=== PATIENT | female | born 1945 | race Caucasian/White ===

== ENCOUNTER → 2022-04-26 11:48 | Outpatient (BNVA) | payer MEDICARE, BC, SELFPAY | PROVIDERS: PCP Internal Medicine; Visit Provider Internal Medicine Gastroenterology | DX: D64.9 Anemia, unspecified (principal) | CPT/HCPCS: 99202 ==

== ENCOUNTER → 2022-09-16 10:34 | Outpatient (BNVA) | payer MEDICARE, BC, SELFPAY | PROVIDERS: PCP Internal Medicine; Visit Provider Internal Medicine Gastroenterology | DX: K92.2 Gastrointestinal hemorrhage, unspecified (principal) | CPT/HCPCS: 99212 ==

== ENCOUNTER 2023-10-10 11:12 | Outpatient (AMB) | payer MEDICARE, BC, SELFPAY ==
--- NOTE | 2023-10-10 11:15 | A.OFFVIS_ITS ---
Intake Vital Signs 10/10/23 11:16 Height 5 ft 3 in Weight 162 lb BMI 28.7 BP 174/73 H Blood Pressure Location Lt brachial Position Sitting Pulse 81 Intake Visit Reasons: 4 month follow up Intake Note: Alina presents in the office as a 4 month follow up. CC: She states that she is having concerns. She states that she is still bleeding and they found one bleed and she was recommended to be put on medications. She was good since last spring and it has started again. She was also recommended to try thalidomide -- you recommended octreotide and she does not like the side effects of the Thalidomide so she would like to talk to you about this medication. Allergies Seasonal Allergies Allergy (Mild, Verified 10/10/23 11:17) Unknown HPI 4 month follow up HPI Details RECAP: She has been having chronic anemia for years she has had x2 colonoscopy in last few years, x 2 EGD and x [address] scanning and no obvious cause found per her she has have freq iron infusions and blood transfusions last PRBC about 1 month ago with IV iron she has seen blood few times in toilet when she was prepping for colonsocopy also seen black stools as well every few days she normally goes few times a day for stool she sees black stools few times a week She takes nabumetone BID for 6 months, for leg no aspirin, no blood thinners she takes lansoprazole BID I did review one VCE study from [facility] with her and it was negative. INTERIM: she had f/u with Dr Griffiths, and had bleeder treated with EGD but now she has recurrent bleeding episodes and he had recommended thalidomide she is worried abt using this and would prefer octreotide instead she is getting iron infusions and blood prn she has v mild epigastric discomfort she is asking about octreotide vs thalidomide also asking abt doing a VCE prn EXAM: GENERAL: The patient is well developed and nontoxic. VITAL SIGNS:see workflow HEENT: Nonicteric sclerae, PERRLA, EOMI. Oropharynx clear. Moist mucous membranes. Conjunctivae appear well perfused. No thyroid mass. CHEST: Chest wall is nontender. HEART: Regular rate and rhythm without murmurs. LUNGS: Clear to auscultation bilaterally. ABDOMEN: Soft, positive bowel sounds, nontender, no organomegaly.no flank tenderness SKIN: No rash, no excessive bruising, petechiae, or purpura. NEUROLOGIC: Cranial nerves II-XII intact without motor/sensory deficit. A/P: 1/ Overt obscure GI bleeding , had treat ment but again bleeding, she wants to discuss meds vs further endoscopic treatment Plan: 1/ she will d/w PCP abt the meds also ca n do VCe prn if she has signs of GIB --will see prn PFS Medical History FHx: total abdominal hysterectomy and bilateral salpingo-oophorectomy Surgical History H/O: hysterectomy History of esophagogastroduodenoscopy (EGD) History of left knee replacement Hx of colonoscopy Hx of rectal polypectomy Hx of tonsillectomy Family History Mother Kidney failure Heart failure Father Diabetes Heart problem Sister Heart failure Paternal Aunt Colon cancer Hx of lymphoma Paternal Aunt Liver cancer Breast cancer Maternal Grandfather Colon cancer Daughter Lyme disease Physical Exam Vital Signs: Last Vital Signs Pulse 81 10/10/23 11:16 BP 174/73 H 10/10/23 11:16 BMI result Body Mass Index 28.7 Assessment & Plan Assessment & Plan (1) Small intestinal hemorrhage: Code(s): K92.2 - Gastrointestinal hemorrhage, unspecified Plan: see above Medications: New peg-electrolyte soln 420 gram until fecal effluent is clear; do not exceed a total volume of 2,000 mL 240 mL PO Q10M 4,000 mL 0RF Coding Level of Care Code Est Pt Level 3 (86725) Diagnoses Small intestinal hemorrhage K92.2
[2023-10-10 11:16] VITALS: BP 174/73; PULSE 81; BMI 28.7
== END 2023-10-10 13:10 | disposition home or self-care (01) ==
PROVIDERS: PCP Internal Medicine; Visit Provider Internal Medicine Gastroenterology
DX: K92.2 Gastrointestinal hemorrhage, unspecified (principal)
CPT/HCPCS: 99213

== ENCOUNTER → 2023-10-10 11:12 | Outpatient (BNVA) | payer MEDICARE, BC, SELFPAY | PROVIDERS: PCP Internal Medicine; Visit Provider Internal Medicine Gastroenterology | DX: K92.2 Gastrointestinal hemorrhage, unspecified (principal) | CPT/HCPCS: 99212 ==

== ENCOUNTER 2025-05-30 07:19 | Outpatient (REF) | payer MEDICARE, BC, SELFPAY ==
--- NOTE | ~2025-05-30 | XR_ITS ---
CLINICAL HISTORY: M25.562 - Pain in left knee 3 view left knee Comparison: None provided Findings: Knee arthroplasty. No fractures or dislocations. No significant loss of joint space, osteophytes, or erosions. No joint effusion. No radiopaque foreign body. IMPRESSION: 1. No acute findings. This document has been electronically signed by: Michelle Feldman MD on 05/31/2025 14:47:15
--- OUTSIDE RECORDS SUMMARY | 2025-05-30 07:22 | XMS_ITS | Clinical Summary ---
Author Organization [facility] Address [address] [place] [phone] Phone Care Team Providers Care Gleason Operator Name Role Phone Young Jimenez MD Primary Care Provider Allergies Active Allergy Reactions Criticality Noted Date Comments Amoxicillin Diarrhea 04/04/2021 Buspirone 04/04/2021 Cephalosporins 02/15/2019 Fluorouracil-Adhesive Bandage 2021 Hydrocodone-Acetaminophen Anxiety Low 04/04/2021 Lisinopril 04/04/2021 Nabumetone 04/04/2021 Omeprazole Swelling 04/04/2021 Oxycodone-Acetaminophen Rash Low 02/15/2019 Propoxyphene High 09/08/2019 Rofecoxib 04/04/2021 Valsartan 04/04/2021 Medications amitriptyline (ELAVIL) 10 MG tablet Take 20 mg by mouth nightly at bedtime. Active atenolol (TENORMIN) 50 mg tablet Take 50 mg by mouth daily. Active biotin 5 mg Cap 2 (two) times a week. Active hydroCHLOROthia zide (MICROZIDE) 12.5 mg capsule Take 12.5 mg by mouth daily. Active traMADol (ULTRAM) 50 mg tablet Take 50 mg by mouth every 6 (six) hours as needed for pain (specific location in comments). Active cholecalciferol (VITAMIN D3) 5,000 unit capsule Take by mouth. Activ e cycloSPORINE (RESTASIS) 0.05 % suspension Place 1 drop into each eye 2 (two) times a day. Active calcium carbonate 500 mg (200 mg elemental) chewable tablet Take 1 tablet by mouth daily. As needed Active azelastine (ASTELIN) 137 mcg (0.1 %) nasal spray 2 sprays by Nasal route 2 (two) times a day. Use in each nostril as directed Active thyroid, pork, (ARMOUR THYROID) 30 mg Tab Take 45 mg by mouth every morning. Active gabapentin (NEURONTIN) 100 MG capsule Take 100 mg by mouth 4 (four) times a day. Active estradioL (VAGIFEM) 10 mcg TabIndications: Vaginal atrophy Place 1 tablet (10 mcg total) vaginally 2 (two) times a week. 24 tablet 3 1 Active Additional Information Patient not taking.Reported on 05/16/2025 lansoprazole (PREVACID) 30 MG capsule Take 60 mg by mouth. Active glyBURIDE (DIABETA) 1.25 MG tablet Take 1.25 mg by mouth daily with breakfast. Half tab up to 2 tabs daily Active fluticasone propionate (FLONASE) 50 mcg/actuation nasal spray SHAKE LIQUID AND USE 1 SPRAY IN EACH NOSTRIL TWICE DAILY NEEDED 1 Active ARMOUR THYROID 15 mg Tab Take 45 mg by mouth every morning. 1 Active ascorbic acid, vitamin C, (VITAMIN C) 500 mg Chew Take 500 mg by mouth daily. Active JARDIANCE 25 mg tablet Take 1 tablet by mouth every morning. 3 Active nabumetone (RELAFEN) 750 MG tablet Take 1 tablet by mouth 2 (two) times a day. 3 Active ondansetron (ZOFRAN) 8 MG tablet 3 Active acetaminophen (TYLENOL) 500 MG tablet Take 500 mg by mouth every 6 (six) hours as needed for pain (specific location in comments). Active Active Problems Problem Noted Date Diagnosed Date Urinary urgency 04/23/2021 Assessment & Plan (04/23/2021 12:41 PM EDT): Patient with intermittent vague symptom of urinary pressure/urge to continue to void after having just voided. Symptoms not occurring consistently. May be couple times a week. Denies any dysuria. Patient reassured of normal urine POCT today. Follow-up as needed worsening or persistence of symptoms. Encounters Date Type Department Care Team Description 5 12:30 PM EDT - 5 12:45 PM EDT Surgery [facility] Endoscopy Admitting Dept Virtual Department [address] [place] [id number] Annamarie Coker MD ESOPHAGOGASTRODUODENOSCOPY 5 11:54 AM EDT Anesthesia Event [facility] Virtual Department [address] [place] [phone] Fauzia Aranda MD 5 10:21 AM EDT - 5 12:41 PM EDT Hospital Encounter [facility] Virtual Department [address] [place] [phone] Annamarie Coker MD Discharge Disposition: Home or Self Care 5 Transcribe Orders [facility] [address] [place] [address], [address] [place] [address] Annamarie Coker MD Melena (Primary Dx); Fundic gland polyps of stomach, benign 5 Procedure Pass [facility] Admitting [facility] Virtual Department [address] [place] [phone] 5 9:30 AM EDT Pre-Admission Testing Pre Procedure Evaluation [address] [place] [phone] Annamarie Coker MD from Last 3 Months Immunizations Immunization Administration Dates Next Due COVID-19 (Pre-09/01) Pfizer Vaccine, mRNA, PF ,12/17/2020 Zoster recombinant 05/18/2018,02/26/2018 Family History Medical History Relation Comments Diabetes Father Colon cancer Maternal Grandfather Diabetes Mother Heart failure Mother Kidney failure Mother Diabetes Sister Relation Status Comments Father Maternal Grandfather Mother Sister Social History Tobacco Use Types Packs/Day Years Used Date Smoking Tobacco: Never Smokeless Tobacco: Never Tobacco Cessation:Counseling Given: Not Answered Alcohol Use Standard Drinks/Week Comments Not Currently 0 (1 standard drink = 0.6 oz pur e alcohol) very occasional 4x yearly Education Answer Date Recorded Are you interested in more education? Not on libia e 03/07/2023 Are you concerned about learning? Not on file 03/07/2023 No 03/07/2023 No 03/07/2023 Digital Access Answer Date Recorded No 04/01/2023 No 04/01/2023 Reliable internet access at home? Not on file 04/01/2023 Device with a working camera? Not on file Intimate Partner Violence Answer Date R ecorded Are you denied basic needs s uch as food, clothing, or medical care? No 05/16/2025 In the past 12 months have y ou been in a relationship with a person who hurts, threatens, or tries to control you? No 05/16/2025 Are you denied basic needs s uch as food, clothing, or medical care? No 05/16/2025 In the past 12 months have y ou been in a relationship with a person who hurts, threatens, or tries to control you? No 05/16/2025 Comments No Sex and Gender Information Value Date Recorded Sex Assigned at Not on file Legal Sex Female 10:08 PM EDT Gender Identity Not on file Sexual Orientation Not on file Last Filed Vital Signs Vital Sign Reading Time Taken Comments Blood Pressure 136/90 05/16/2025 12:21 PM EDT Pulse 88 05/16/2025 12:21 PM EDT Temperature 36.4 C (97.5 F) 05/16/2025 12:08 PM EDT Respiratory Rate 16 05/16/2025 12:21 PM EDT Oxygen Saturation 98% 05/16/2025 12:21 PM EDT Inhaled Oxygen Concentration - - Weight 70.3 kg (155 lb) 05/12/2025 10:38 AM EDT Height 160 cm (5' 3 ) 03/31/2023 10:31 AM EDT Body Mass Index 27.46 03/31/2023 10:31 AM EDT Plan of Treatment Health Maintenance Due Date Last Done Comments Adult Td,Tdap Booster 1945 POTASSIUM LEVEL 1945 HEPATITIS C SCREENING 01/23/1964 OSTEOPOROSIS SCREENING INITIAL (ONE-TIME) 2011 RSV VACCINE (1 - 1-dose 75+ series) 2021 DEPRESSION SCREENING 03/02/2024 03/02/2023 COVID-19 VACCINE ( season) 2025 09/24/2024, 09/15/2023, 05/09/2023, Additional history exists LIPID PANEL 12/22/2029 12/22/2024 ZOSTER VACCINES Completed 05/18/2018, 02/26/2018 PNEUMOCOCCAL VACCINES (50+ years) Completed 07/06/2024 SMOKING STATUS SCREENING (Once After 26 Yrs) Completed 05/16/2025 HEPATITIS A VACCINES Aged Out No long er eligible based on patient's age to complete this topic HIB VACCINES Aged Out No longer eligi ble based on patient's age to complete this topic MENINGOCOCCAL VACCINES (ACWY) Aged Out No longer eligible based on patient's age to complete this topic MENINGOCOCCAL VACCINES (B) Aged Out N o longer eligible based on patient's age to complete this topic Medical Devices Implanted Type Area Honey Producer Device Identifier Shelf Expiration Date Model / Serial / Lot Prosthetic Joint Prosthetic Joint Right: Knee Procedures Procedure Name Priority Date/Time Associated Diagnosis Comments UT EDG TRANSORAL BIOPSY SINGLE/MULTIPLE 05/16/2025 11:53 AM EDT 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) Special Needs Arriving 2 hours early for CBC and type & screen - per office UT ESOPHAGOGASTRODUODENOSCOP Y TRANSORAL DIAGNOSTIC 05/16/2025 11:53 AM EDT 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) Special Needs Arriving 2 hours early for CBC and type & screen - per office ENDOSCOPY PROCEDURE 05/16/2025 11:45 AM EDT TYPE AND SCREEN (ABO,RH,ANTIBODY SCREEN) STAT 05/16/2025 10:58 AM EDT CBC STAT 05/16/2025 10:58 AM EDT OUTSIDE PATHOLOGY 05/16/2025 OUTSIDE LAB 05/16/2025 OUTSIDE PROCEDURE 05/16/2025 from Last 3 Months Results * ENDOSCOPY PROCEDURE (05/16/2025 11:45 AM EDT) Narrative Transcriptions Annamarie Coker MD - 05/16/2025 11:45 AM EDT [facility] Patient Name: Alina Mike Attending MD:: ANNAMARIE COKER MD, Procedure Date: 05/16/2025 11:45 AM Date of : 1945 Age: 80 Admit Type: Outpatient Gender: Female Room: [place] [address] Referring MD: Young Jimenez MD Exam Type: Upper GI endoscopy Indications: Iron deficiency anemia, Unexplained iron deficiency anemia, Abnormal video capsule endoscopy Medications: Monitored Anesthesia Care Procedure: Informed consent was obtained from the patientafter discussion of the indications, limitations, alternatives, benefits, and risks of the procedure. Risks specifically discussed include but are not limited to medication reactions, missed lesions, bleeding, perforation, or the need for emergent surgery. Throughout the procedure, the patient's blood pressure, pulse, end-tidal CO2, and oxygensaturations were monitored continuously. The Olympus gastroscope [id number]-[id number] #3 was introduced through the mouth, and advanced to the third partof duodenum. The upper GI endoscopy was accomplished without difficulty. The patient tolerated the procedure well. Complications: No immediate complications. Estimated blood loss:None. Findings: A 2 cm hiatal hernia was present. No gross lesions were noted in the entireesophagus. The Z-line was regular and was found 35 cm from the incisors. Multiple (close to 50) 5 to 10 mm semi-sessilepolyps with no bleeding and no stigmata of recent bleeding were found in the gastric fundus and in the gastric body. Close exam of these polyps showed absolutelyno signs of recent or stigmata of bleeding. Given the number and lack of bleeding, risk/benefitassessment favor no polypectomy at this setting (with a normal CBC today) The examined duodenum was normal. The cardia and gastric fundus were normal on retroflexion. Impression: - 2 cm hiatal hernia. - No gross lesions in the entire esophagus. - Z-line regular, 35 cm from the incisors. - Multiple gastric polyps. - Normal examined duodenum. - No specimens collected. Recommendation: - Continue present medications, including iron supplementation. ANNAMARIE COKER MD 05/16/2025 12:12:57 PM This report has been signed electronically. Number of Addenda: 0 Note Initiated On: 05/16/2025 11:45 AM Procedure Code(s): --- Professional --- 83871, Esophagogastroduodenoscopy, flexible, transoral; diagnostic, including collection of specimen(s) by brushing or washing, when performed (separate procedure) --- Technical --- 03281, Esophagogastroduodenoscopy, flexible, transoral; diagnostic, including collection of specimen(s) by brushing or washing, when performed (separate procedure) Diagnosis Code(s): --- Professional --- K44.9, Diaphragmatic hernia without obstruction or gangrene K31.7, Polyp of stomach and duodenum D50.9, Iron deficiency anemia, unspecified R93.3, Abnormal findings on diagnostic imaging of other parts of digestive tract --- Technical --- K44.9, Diaphragmatic hernia without obstruction or gangrene K31.7, Polyp of stomach and duodenum D50.9, Iron deficiency anemia, unspecified R93.3, Abnormal findings on diagnostic imaging of other parts of digestive tract CPT copyright 2021 [employer]. All rights reserved. The codes documented in this report are preliminary and upon commercial lines account assistant reviewmay be revised to meet current compliance requirements. Procedure Date: 05/16/2025 11:45:[address] [place] [id number] Young Jimenez MD GI PROCEDURE ORDERABLES Final Result * (ABNORMAL) CBC (05/16/2025 10:58 AM EDT) WBC 10.82 4.00 - 11.00 K/uL [facility] RBC 4.54 4.00 - 5.20 M/uL [facility] HGB 12.7 12.0 - 16.0 g/dL [facility] HCT 39.1 36.0 - 46.0 % [facility] PLT 340 150 - 450 K/uL [facility] MCV 86.1 80.0 - 100.0 fL [facility] MCH 28.0 27.0 - 31.0 pg [facility] MCHC 32.5 32.0 - 36.0 g/dL [facility] RDW 14.2 11.5 - 14.5 % [facility] MPV 8.1(L) 8.4 - 12.0 fL [facility] NRBC 0.00 0.00 /100 WBCs [facility] ABSOLUTE NRBC 0.00 0.00 K/uL [facility] Blood 05/16/2025 10:5 8 AM EDT 05/16/2025 11:16 AM EDT us Annamarie Coker MD LAB BLOOD ORDERABLES Final Res ult [address] [address] * Type and Screen (ABO,Rh,Antibody Screen) (05/16/2025 10:58 AM EDT) ABO/Rh A Positive [facility] Antibody Screen Negative [facility] Expiration Date of Sample 05/19/2025,2 359 [facility] Resulting Agency [facility] Blood 05/16/2025 10:5 8 AM EDT 05/16/2025 11:16 AM EDT us Annamarie Coker MD BLOOD BANK TEST ORDERABLES Fin al Result Performing Organization Address City/[facility]/ZIP Co de Phone Number [address] [address] * Outside Procedure (05/16/2025) us Scanning Interface Provider PROCEDURE/MINOR SURG ICAL PERFORMABLES Final Result * Outside Lab (05/16/2025) us Scanning Interface Provider LAB BLOOD ORDERABLES Final Result * Outside Pathology (05/16/2025) us Scanning Interface Provider PATHOLOGY ORDERABLES Final Result from Last 3 Months Insurance MEDICARE PART A & B [facility] MEDICARE PART A & B [facility] MEDICARE PART A & B [facility] MEDICARE PART A & B [facility] [place] [id number] MEDICARE PART A & B [facility] MEDICARE PART A & B [facility] MEDICARE PART A & B Member Subscriber Plan / Payer (Ef fective 2011-Present) Name:[employer] Alina Member ID:[id number] Relation to Subscriber:Self Name:Mike Alina Subscriber ID:[id number] Payer ID:[id number] Group ID:Not on file Type:Medicare Address: [employer] [address] [place] [id number] [place] [address] MEDICARE PART A & B [facility] [employer]LAQU[employer]O ALMEIDA MEDICARE PART A & B [facility] Care Teams Gleason Operator Relationship Specialty Start Date End Date Young Jimenez MD [address] [place] [phone] PCP - General Internal Medicine 02/15/19 Additional Source Comments The information contained in this document represents components of the legal health record. It is not the complete legal health record.[facility]
--- OUTSIDE RECORDS SUMMARY | 2025-05-30 07:22 | XMS_ITS | Encounter Summary ---
Author Organization [facility] Address [address] [place] [address] Care Team Providers Care Manager Project Management Name Role Phone Young Lema MD Primary Care Provider [phone] Encounter Details Date Type Department Care Team (Latest Contact Info) Description 12/22/2024 Lab Requisition [facility] - Main Lab [address] [facility] [place] [address] Young Lema MD [address] [place] [address] Acute upper respiratory infection, unspecified; Type 2 diabetes mellitus without complications (CMS/HCC V24, CMS/HCC V28); Essential (primary) hypertension; Fibromyalgia; Iron deficiency anemia secondary to blood loss (chronic); Gastro-esophageal reflux disease without esophagitis Social History Tobacco Use Types Packs/Day Years Used Date Smoking Tobacco: Never Smokeless Tobacco: Never Alcohol Use Standard Drinks/Week Comments Yes 0 (1 standard drink = 0.6 oz pur e alcohol) Comments Unknown Sex and Gender Information Value Date Recorded Sex Assigned at Female 11/23/2024 1:25 PM EST Legal Sex Female 3:48 PM EST Gender Identity Female 11/23/2024 1:25 PM EST Sexual Orientation Straight 11/23/2024 1: 25 PM EST documented as of this encounter Plan of Treatment Upcoming Encounters Date Type Department Care Team (Late st Contact Info) Description 06/09/2025 3:00 PM EDT Office Visit [facility] Hematology Oncology [address] [place] [phone] Emile Webber MD [address] [place] [phone] 03/13/2026 11:00 AM EDT Ancillary Procedure [facility] Cardiology [facility] [address] [phone] 03/20/2026 12:00 PM EDT Ancillary Procedure [facility] [address] [phone] documented as of this encounter Procedures Procedure Name Priority Date/Time Associated Diagnosis Comments THYROID STIMULATING HORMONE WITH REFLEX TO FREE T4 AND FREE T3 Routine 12/22/2024 1:22 PM EST Acute upper respiratory infection, unspecified Type 2 diabetes mellitus without complications (CMS/HCC) Essential (primary) hypertension Fibromyalgia Iron deficiency anemia secondary to blood loss (chronic) Gastro-esophageal reflux disease without esophagitis LIPID PANEL WITH REFLEX TO DIRECT LDL Routine 12/22/2024 1:22 PM EST Acute upper respiratory infection, unspecified Type 2 diabetes mellitus without complications (CMS/HCC) Essential (primary) hypertension Fibromyalgia Iron deficiency anemia secondary to blood loss (chronic) Gastro-esophageal reflux disease without esophagitis CBC WITH AUTO DIFFERENTIAL Routine 12/22/2024 1:22 PM EST Acute upper respiratory infection, unspecified Type 2 diabetes mellitus without complications (CMS/HCC) Essential (primary) hypertension Fibromyalgia Iron deficiency anemia secondary to blood loss (chronic) Gastro-esophageal reflux disease without esophagitis CBC AND DIFFERENTIAL Routine 12/22/2024 1:22 PM EST Acute upper respiratory infection, unspecified Type 2 diabetes mellitus without complications (CMS/HCC) Essential (primary) hypertension Fibromyalgia Iron deficiency anemia secondary to blood loss (chronic) Gastro-esophageal reflux disease without esophagitis HEMOGLOBIN A1C Routine 12/22/2024 1:22 PM EST Acute upper respiratory infection, unspecified Type 2 diabetes mellitus without complications (CMS/HCC) Essential (primary) hypertension Fibromyalgia Iron deficiency anemia secondary to blood loss (chronic) Gastro-esophageal reflux disease without esophagitis COMPREHENSIVE METABOLIC PANEL Routine 12/22/2024 1:22 PM EST Acute upper respiratory infection, unspecified Type 2 diabetes mellitus without complications (CMS/HCC) Essential (primary) hypertension Fibromyalgia Iron deficiency anemia secondary to blood loss (chronic) Gastro-esophageal reflux disease without esophagitis documented in this encounter Results * (ABNORMAL) CBC auto differential (12/22/2024 1:22 PM EST) WBC 5.7 4.8 - 10.8 K/mcL LAB HEMETOLOGY METHOD 12/22/2024 4:14 PM [facility] RBC 3.60(L) 3.80 - 4.80 M/mcL LAB HEMETOLOGY METHOD 12/22/2024 4:14 PM [facility] Hemoglobin 10.7(L) 11.5 - 16.0 g/dL LAB HEMETOLOGY METHOD 12/22/2024 4:14 PM [facility] Hematocrit 34.0(L) 35.0 - 47.0 % LAB HEMETOLOGY METHOD 12/22/2024 4:14 PM [facility] MCV 95.8 79.0 - 98.0 FL LAB HEMETOLOGY METHOD 12/22/2024 4:14 PM [facility] MCH 30.1 27.0 - 32.0 pcg LAB HEMETOLOGY METHOD 12/22/2024 4:14 PM [facility] MCHC 31.5(L) 32.0 - 37.0 g/dL LAB HEMETOLOGY METHOD 12/22/2024 4:14 PM [facility] RDW 15.7(H) 11.0 - 15.0 % LAB HEMETOLOGY METHOD 12/22/2024 4:14 PM [facility] Platelets 285 130 - 400 K/mcL LAB HEMETOLOGY METHOD 12/22/2024 4:14 PM [facility] MPV 8.5 7.0 - 11.0 FL LAB HEMETOLOGY METHOD 12/22/2024 4:14 PM [facility] NRBC 0.0 <1.0 % LAB HEMETOLOGY METHOD 12/22/2024 4:14 PM [facility] NRBC Absolute 0.00 <0.10 K/mcL LAB HEMETOLOGY METHOD 12/22/2024 4:14 PM [facility] Neutrophils Relative 72.4 % LAB HEMETOLOGY METHOD 12/22/2024 4:14 PM [facility] Lymphocytes Relative 13.6 % LAB HEMETOLOGY METHOD 12/22/2024 4:14 PM [facility] Monocytes Relative 7.4 % LAB HEMETOLOGY METHOD 12/22/2024 4:14 PM [facility] Eosinophils Relative 5.1 % LAB HEMETOLOGY METHOD 12/22/2024 4:14 PM [facility] Basophils Relative 1.1 % LAB HEMETOLOGY METHOD 12/22/2024 4:14 PM [facility] Immature Granulocytes Relative 0.4 % LAB HEMETOLOGY METHOD 12/22/2024 4:14 PM [facility] Neutrophils Absolute 4.12 1.50 - 7.00 K/mcL LAB HEMETOLOGY METHOD 12/22/2024 4:14 PM [facility] Lymphocytes Absolute 0.77(L) 1.00 - 5.00 K/mcL LAB HEMETOLOGY METHOD 12/22/2024 4:14 PM [facility] Monocytes Absolute 0.42 0.20 - 1.00 K/mcL LAB HEMETOLOGY METHOD 12/22/2024 4:14 PM [facility] Eosinophils Absolute 0.29 0.00 - 0.50 K/mcL LAB HEMETOLOGY METHOD 12/22/2024 4:14 PM EST [facility] Basophils Absolute 0.06 0.00 - 0.20 K/mcL LAB HEMETOLOGY METHOD 12/22/2024 4:14 PM [facility] Immature Granulocytes Absolute 0.02 0.00 - 0.03 K/mcL LAB HEMETOLOGY METHOD 12/22/2024 4:14 PM [facility] Blood Venous blood specimen / Unknown 12/22/2024 1:22 PM EST 12/22/2024 3:56 PM EST us Young Lema MD LAB BLOOD ORDERABLES Final Res ult [facility] [address] [place] [address], * (ABNORMAL) Comprehensive metabolic panel (12/22/2024 1:22 PM EST) Sodium 137 133 - 145 mmol/L LAB CHEMISTRY METHOD 12/22/2024 4:26 PM [facility] Potassium 3.7 3.5 - 5.5 mmol/L LAB CHEMISTRY METHOD 12/22/2024 4:26 PM [facility] Chloride 103 96 - 110 mmol/L LAB CHEMISTRY METHOD 12/22/2024 4:26 PM [facility] CO2 30 21 - 32 mmol/L LAB CHEMISTRY METHOD 12/22/2024 4:26 PM [facility] Anion Gap 4 3 - 11 LAB CHEMISTRY METHOD 12/22/2024 4:26 PM [facility] Glucose 109(H) 70 - 100 mg/dL LAB CHEMISTRY METHOD 12/22/2024 4:26 PM [facility] BUN 25 5 - 25 mg/dL LAB CHEMISTRY METHOD 12/22/2024 4:26 PM [facility] Creatinine 1.06 0.50 - 1.10 mg/dL LAB CHEMISTRY METHOD 12/22/2024 4:26 PM [facility] eGFR 54(L) >=60 mL/min/1. 73m2 LAB CHEMISTRY METHOD 12/22/2024 4:26 PM [facility] Comment:Calculation based on the Chronic Kidney Disease Epidemiology Collaboration (CKD-EPI) equation refit without adjustment for race. BUN/Creatinine Ratio 23.6 LAB CHEMISTRY METHOD 12/22/2024 4:26 PM [facility] Calcium 8.9 8.5 - 10.5 mg/dL LAB CHEMISTRY METHOD 12/22/2024 4:26 PM [facility] AST (SGOT) 42 10 - 42 unit/L LAB CHEMISTRY METHOD 12/22/2024 4:26 PM [facility] ALT (SGPT) 53 10 - 60 unit/L LAB CHEMISTRY METHOD 12/22/2024 4:26 PM [facility] Alkaline Phosphatase 97 42 - 121 unit/L LAB CHEMISTRY METHOD 12/22/2024 4:26 PM [facility] Total Protein 6.7 6.0 - 8.0 g/dL LAB CHEMISTRY METHOD 12/22/2024 4:26 PM [facility] Albumin 3.8 3.2 - 5.0 g/dL LAB CHEMISTRY METHOD 12/22/2024 4:26 PM [facility] Total Bilirubin 0.4 0.0 - 1.4 mg/dL LAB CHEMISTRY METHOD 12/22/2024 4:26 PM [facility] Blood Venous blood specimen / Unknown 12/22/2024 1:22 PM EST 12/22/2024 3:56 PM EST us Young Lema MD LAB BLOOD ORDERABLES Final Res ult [facility] [address] [place] [address], [place] [phone] * Thyroid stimulating hormone with reflex to free t4 and free t3 (12/22/2024 1:22 PM EST) Pathologist [facility] TSH 1.81 0.40 - 4.00 mcIU/mL LAB CHEMISTRY METHOD 12/22/2024 4:34 PM EST [facility] Blood Venous blood specimen / Unknown 12/22/2024 1:22 PM EST 12/22/2024 3:56 PM EST Young Lema MD LAB BLOOD ORDERABLES Final Res ult [facility] [address] [place] [address], [place] [phone] * (ABNORMAL) Lipid panel with reflex to direct LDL (12/22/2024 1:22 PM EST) [facility] Cholesterol 145 0 - 200 mg/dL LAB CHEMISTRY METHOD 12/22/2024 4:26 PM [facility] Triglycerides 233(H) 0 - 150 mg/dL LAB CHEMISTRY METHOD 12/22/2024 4:26 PM [facility] HDL 38(L) >=40 mg/dL LAB CHEMISTRY METHOD 12/22/2024 4:26 PM [facility] LDL Calculated 60 0 - 100 mg/dL LAB CHEMISTRY METHOD 12/22/2024 4:26 PM [facility] VLDL Cholesterol Ham 46.6 mg/dL LAB CHEMISTRY METHOD 12/22/2024 4:26 PM [facility] Non HDL Chol. (LDL+VLDL) 107 <145 mg/dL LAB CHEMISTRY METHOD 12/22/2024 4:26 PM [facility] Chol/HDL Ratio 3.8 0.0 - 4.4 LAB CHEMISTRY METHOD 12/22/2024 4:26 PM [facility] Blood Venous blood specimen / Unknown 12/22/2024 1:22 PM EST 12/22/2024 3:56 PM EST Young Lema MD LAB BLOOD ORDERABLES Final Res ult Performing Organization Address [facility]/ZIP Co de Phone Number [facility] [address] [place] [address], [place] [phone] * Hemoglobin A1c (12/22/2024 1:22 PM EST) Hemoglobin A1C 5.6 <6.5 % LAB CHEMISTRY METHOD 12/22/2024 8:47 PM EST [facility] Mean Bld Glu Estim. 114 mg/dL LAB CHEMISTRY METHOD 12/22/2024 8:47 PM EST [facility] Blood Venous blood specimen / Unknown 12/22/2024 1:22 PM EST 12/22/2024 3:56 PM EST Young Lema MD LAB BLOOD ORDERABLES Final Res ult Performing Organization Address [facility] Co de Phone Number [facility] [address] [place] [address], [place] [phone] documented in this encounter Visit Diagnoses Diagnosis Acute upper respiratory infection, unspecified Type 2 diabetes mellitus without complications (CMS/HCC V24, CMS/HCC V28) Essential (primary) hypertension Unspecified essential hypertension Fibromyalgia Unspecified myalgia and myositis Iron deficiency anemia secondary to blood loss (chronic) Gastro-esophageal reflux disease without esophagitis documented in this encounter Care Teams Manager Project Management Relationship Specialty Start Date End Date Young Lema MD [address] [place] [address] PCP - General Internal Medicine 11/01/24 documented as of this encounter
--- OUTSIDE RECORDS SUMMARY | 2025-05-30 07:22 | XMS_ITS ---
Author Name [facility] Organization Unknown History of Medication Use Medication Directions Dispensed Refills Start Date End Date Stat us amitriptyline 10 mg tablet TAKE 2 TABLETS BY MOUTH EVERY NIGHT AT BEDTIME active diazepam 2 mg tablet TAKE 1 TABLET BY MOUTH 1 HOUR PRIOR TO TEST. DO NOT DRIVE. active diazepam 5 mg tablet TAKE 1 TABLET BY MOUTH 60 MINUTES PRIOR TO MRI APPOINTMENT DIRECTED active fluocinolone acetonide oil 0.01 % ear drops INSTILL 2 DROPS TO THE AFFECTED EAR TWICE A WEEK DIRECTED AND NEEDED FOR ITCHINESS active gabapentin 100 mg capsule active Jardiance 10 mg tablet TAKE 1 TABLET BY MOUTH EVERY DAY active lansoprazole 30 mg capsule,delayed release TAKE 1 CAPSULE BY MOUTH TWICE DAILY active nabumetone 500 mg tablet TAKE 1 TABLET BY MOUTH TWICE DAILY active nabumetone 750 mg tablet TAKE 1 TABLET BY MOUTH TWICE DAILY active sucralfate 100 mg/mL oral suspension SHAKE LIQUID AND TAKE 10 ML BY MOUTH FOUR TIMES DAILY EVERY NIGHT 20 TO 30 MINUTES BEFORE MEALS AND AT BEDTIME ON AN EMPTY STOMACH active Allergies Allergen Reaction Severity Comment Documented Date Source Statu s AMOXICILLIN ENS_[facility] BUSPIRONE ENS_AONECT DIOVAN ENS_AONECT GABAPENTIN ENS_[facility] LISINOPRIL ENS_[facility] OMEPRAZOLE ENS[facility] OXYCODONE ENS_[facility] PROPOXYPHENE ENS_AONECT RELAFEN ENS_AONECT ROFECOXIB ENS_AONECT Problems Problem Status Onset Date Problem Type Date of Resoluti on Source Osteoarthritis of midfoot active 2023-04-03 ProblemAct [facility]ECT Encounters Encounter Type Encounter Reason Primary Diagnosis Location Date Ambulatory [facility] 04/04/2023 Ambulatory [facility] 04/03/2023 Ambulatory [facility] 04/03/2023 Ambulatory [facility] 03/28/2023 Ambulatory [facility] 03/28/2023 Ambulatory [facility] 03/28/2023
--- OUTSIDE RECORDS SUMMARY | 2025-05-30 07:22 | XMS_ITS | Clinical Summary ---
Author Organization [facility] [address] [facility] Address [address] [place] [address] Phone Care Team Providers Care Tree Worker Name Role Phone Unavailable Primary Care Provider Unavailabl e Medications No known medications Social History Tobacco Use Types Packs/Day Years Used Date Smoking Tobacco: Never Tobacco Cessation:Counseling Given: Not Answered Alcohol Use Standard Drinks/Week Comments Never 0 (1 standard drink = 0.6 oz pur e alcohol) Comments Unknown Sex and Gender Information Value Date Recorded Sex Assigned at Unknown 09/17/2023 12:45 PM EST Legal Sex Female 6:46 AM EST Gender Identity Female 09/17/2023 12:45 PM EST Sexual Orientation Choose not to disclose 2022 12:45 PM EST Last Filed Vital Signs Vital Sign Reading Time Taken Comments Blood Pressure 175/74 01/21/2024 2:14 PM EDT Pulse 92 01/21/2024 2:14 PM EDT Temperature 36.3 C (97.4 F) 01/21/2024 2:14 PM EDT Respiratory Rate 18 01/21/2024 2:14 PM EDT Oxygen Saturation 96% 01/21/2024 2:14 PM EDT Inhaled Oxygen Concentration - - Weight 73.9 kg (163 lb) 01/21/2024 2:14 PM EDT Height 160 cm (5' 3 ) 01/21/2024 2:14 PM EDT Body Mass Index 28.87 01/21/2024 2:14 PM EDT Plan of Treatment Health Maintenance Due Date Last Done Comments HIV screening 1959 Hepatitis C screening 01/23/1964 Tetanus adult (Td q 10,TDAP once) 1966 Lipid disorder screening 1986 Diabetes screening 1991 Pneumococcal Vaccine (50+ years) (1 of 1 - PCV) 01/23/1996 RSV Immunization (1 - 1-dose 75+ series) 2021 Covid-19 vaccine series ( season) 2024 01/08/2021, 12/17/2020 Influenza vaccine 07/11/2025 Osteoporosis screening (bone density) Completed 12/11/2009 Shingles vaccine (Shingrix) Completed 07/2018, 02/26/2018 Breast cancer screening Discontinued Cervical cancer screening Discontinued Colon cancer screening, Colonoscopy Discontinued Meningococcal Vaccine Aged Out No parris jerome eligible based on patient's age to complete this topic Procedures Procedure Name Priority Date/Time Associated Diagnosis Comments BONE DENSITY RESULT SCAN Routine 12/11/2009 from Last 3 Months or Most Recently Relevant to Health Maintenance Results * Bone Density Report (12/11/2009) us Provider External IMG SCAN REPORTS Final Result from Last 3 Months or Most Recently Relevant to Health Maintenance Insurance MEDICARE [facility] MEDICARE [facility] MEDICARE [facility] MEDICARE [facility]
--- OUTSIDE RECORDS SUMMARY | 2025-05-30 07:23 | XMS_ITS | Clinical Summary ---
Author Organization [facility] Address [address] [place] [address] Care Team Providers Care Section Leader Screen Printing Name Role Phone Young Jimenez MD Primary Care Provider [phone] Allergies Active Allergy Reactions Criticality Noted Date Comments Amoxicillin Diarrhea Low 04/04/2021 Buspirone Other (See Comments) Medium 04/04/2021 Vadito more anxious Propoxyphene Anaphylaxis High 04/04/2021 Passed out Valsartan Anxiety Medium 04/04/2021 Lisinopril Swelling Low 04/04/2021 Omeprazole Swelling Low 04/04/2021 Oxycodone-Acetaminophen Rash Low 04/04/2021 Hydrocodone-Acetaminoph en Anxiety Low 04/04/2021 Rofecoxib Nausea And Vomiting Medium 04/04/2021 Medications Medication Sig Dispensed Refills Start Date End Date Status ascorbic acid (VITAMIN C) 500 MG tablet Take 1 tablet (500 mg total) by mouth daily. 0 Active cycloSPORINE (Restasis) 0.05 % ophthalmic emulsion Place 1 drop into both eyes 2 (two) times a day. 0 Active clotrimazole-betame thasone (LOTRISONE) cream Apply 1 applicator topically 2 (two) times a day. 0 Active vitamin D3 (CHOLECALCIFEROL) 125 MCG (5000 UT) capsule Take 1 capsule (5,000 Units total) by mouth daily. 0 Active DHEA 10 MG CAPS Take 1 tablet by mouth 3 (three) times a week. 0 Active Magnesium 400 MG TABS Take 400 mg by mouth 4 (four) times a day. 0 Active azelastine (ASTELIN) 0.1 % nasal spray spray or apply 1 spray inside Nose 2 (two) times a day. Use in each nostril as directed 0 Active Barberry-Oreg Grape-Goldenseal (Berberine Complex) 200-200-50 MG CAPS Take 2 tablets by mouth daily. 0 Active Biotin 1000 MCG tablet Take 1,000 mcg by mouth 2 (two) times a week. 0 Active AMITRIPTYLINE HCL PO Take 20 mg by mouth daily. 0 Active lansoprazole (PREVACID) 30 MG capsule Take 1 capsule (30 mg total) by mouth daily. 0 Active glyBURIDE (DIABETA) 1.25 MG tablet Take 1 tablet (1.25 mg total) by mouth 2 (two) times a day with meals. 0 Active thyroid (ARMOUR) 30 MG tablet Take 1 tablet (30 mg total) by mouth daily. 0 Active gabapentin (NEURONTIN) 100 MG capsule Take 1 capsule (100 mg total) by mouth 4 (four) times a day. 0 Active hydroCHLOROthiazide (HYDRODIURIL) tablet 25 mg Take 1 tablet (25 mg total) by mouth daily. 0 Active atenolol (TENORMIN) tablet 50 mg Take 1 tablet (50 mg total) by mouth daily. 0 Active thyroid (ARMOUR) 15 MG tablet Take 1 tablet (15 mg total) by mouth daily. 45 MG DAILY 0 Active NABUMETONE PO Take by mouth 2 (two) times a day. 0 Active traMADol (ULTRAM) 50 MG tablet Take 50 mg by mouth every 6 (six) hours as needed for pain. 0 Active fluticasone (FLONASE) 50 MCG/ACT nasal spray spray/apply 1 spray in each nostril daily. 0 Active Pregnenolone Micronized (PREGNENOLONE PO) Take by mouth daily. 0 Active Zinc Sulfate (ZINC-220 PO) Take by mouth. 0 Active Jardiance 25 MG TABS Take 1 tablet by mouth daily. 0 01/06/2023 Active ondansetron (ZOFRAN) 8 MG tablet Take 1 tablet (8 mg total) by mouth every 8 (eight) hours as needed for nausea. 30 tablet 3 03/25/2023 Active Additional Information Patient not taking.Reason: Other (no longer taking), Reported on 01/12/2024 Active Problems Problem Noted Date Diagnosed Date Iron deficiency anemia due to chronic blood loss 03/10/2022 Family History Medical History Relation Name Comments Diabetes Father Cancer Maternal Grandfather Diabetes Mother Hypertension Mother Cancer Paternal Aunt Relation Name Status Comments Father Maternal Grandfather Mother Paternal Aunt Social History Tobacco Use Types Packs/Day Years Used Date Smoking Tobacco: Never Smokeless Tobacco: Never Alcohol Use Standard Drinks/Week Comments Yes 0 (1 standard drink = 0.6 oz pur e alcohol) Sex and Gender Information Value Date Recorded Sex Assigned at Female 09/30/2022 2:32 PM EST Gender Identity Female 11/18/2022 1:40 PM EST Sexual Orientation Straight 11/18/2022 1: 40 PM EST Job Start Date Occupation Industry Not on file Not on file Not on file Last Filed Vital Signs Vital Sign Reading Time Taken Comments Blood Pressure 135/50 09/07/2024 10:56 AM EDT Pulse 71 09/07/2024 10:56 AM EDT Temperature 36.4 C (97.5 F) 09/07/2024 10:56 AM EDT Respiratory Rate 18 09/07/2024 10:56 AM EDT Oxygen Saturation 100% 09/07/2024 10:56 AM EDT Inhaled Oxygen Concentration - - Weight 72.1 kg (159 lb) 08/26/2024 3:10 PM EDT Height 160 cm (5' 3 ) 08/26/2024 3:10 PM EDT Body Mass Index 28.17 08/26/2024 3:10 PM EDT Plan of Treatment Health Maintenance Due Date Last Done Comments Hepatitis C Screening 1946 Depression Screening 1958 BMI Counseling 01/23/1964 Preventative Health Evaluation 01/23/1964 DTap / Tdap / Td (1 - Tdap) 1965 Fall Risk Assessment 2011 Osteoporosis Screening (DEXA Scan) 2011 Pneumococcal Vaccine (2 of 2 - PCV) 11/20/2017 11/20/2016 RSV Adult > 60+ Yrs or (1 - 1-dose 75+ series) 2021 COVID-19 Vaccine ( - season) 2024 01/08/2021, 12/17/2020 Influenza Vaccine (#1) 2025 2, 08/06/2021, 07/26/2020, Additional history exists Shingrix-Zoster Vaccine Completed 05/18/2018, 02/26 Hepatitis B Vaccines Aged Out No long er eligible based on patient's age to complete this topic RSV Ped < 20 months Aged Out No longe r eligible based on patient's age to complete this topic Care Teams Section Leader Screen Printing Relationship Specialty Start Date End Date Young Jimenez MD [address] [place] [id number] PCP - General Banquet Set Up Person 12/25/16
--- OUTSIDE RECORDS SUMMARY | 2025-05-30 07:23 | XMS_ITS | Data Portability ---
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 Plan of Treatment Reminders Order Date Submit Date Provider Last Modified By Organization Details Last Modified Time Details Appointments RECHECK 15 2024 01:00P M Natalia Chu MD Not available Not available Not available Lab None recorded . Referral None recorded . Procedures None recorded . Surgeries None recorded . Imaging XR, shoulder , 2 or more view - Jose shoulder 4 view rm 214 2024 025 [email or web address] [facility] Office, [address], [address], [place], [address], 12/27/2024 10:17:17 XR, shoulder , 2 or more view - rm 214 4 view right shoulder 2023 024 [email or web address] [facility] Office, [address], [address], [place], [address], 05/07/2024 07:51:21 Medication Orders None recorded . Patient TargetsNo targets recorded. Patient InstructionsNo instructions recorded. Reason for Referral None Reported. Results Created Date Observation Date Name Description Value Unit Range Abnormal Flag Note LastModifiedBy Organization Detail LastModifiedTime 04/19/20 24 04/19/2024 XR, shoul lawrence, 2 or more view [email or web address]:/ [email or web address] ?Encry pted=s hAaTro YD8dLq bEUv6g %2BXZw aYqtaq 0bqfl% 2Fg9IQ a4ajBk vP9nXo QUaueC m3YtLR FvZlgJ JJ8mAn HZtai3 9m6422 AC0Kua XyEVav eUC8mr 84%3D INTERFACE [facility] [address], [place], [address], 04/19/2024 13:23:00 04/19/20 24 04/19/2024 XR, shoul lawrence, 2 or more view [email or web address] ?Encry pted=s hAaTro YD8dLq bEUv6g %2BXZw aYqtaq 0bqfl% 2Fg9IQ a4ajBk vP9nXo QUaueC m3YtLR FvZlgJ JJ8mAn HZtai3 1s7431 AC0Kua XyEVav eUC8mr 84%3D INTERFACE [facility] [address], [place], [address], 04/19/2024 13:23:02 07/10/20 24 11/25/2022 imagi ng/di agnos tic resul t No observ ation record ed. [email or web address] Not Available 06/12 02:13:52 12/13/19 25 12/13/2024 XR, shoul lawrence, 2 or more view [email or web address] ?Encry pted=s hAaTro YD8dLq bEUv6g %2BXZw aYqtaq 0bqfl% 2Fg9IQ a4ajBk vP9nXo QUaueC m3YtLR FvZlgJ JJ8mAn HZtai3 1j9180 AC0Kqb 3qEWKu iKiQtr MwF INTERFACE [facility] [address], [place], [address], 12/13/2024 16:13:17 12/13/19 25 12/13/2024 XR, shoul lawrence, 2 or more view [email or web address] ?Encry pted=s hAaTro YD8dLq bEUv6g %2BXZw aYqtaq 0bqfl% 2Fg9IQ a4ajBk vP9nXo QUaueC m3YtLR FvZlgJ JJ8mAn HZtai3 3j9369 AC0Kqb 3qEWKu iKiQtr MwF INTERFACE [facility] [address] [facility] [facility] [address], [place], [address], 12/13/2024 16:13:19 Result Notes Documentation Provider Name and Address Organization Details Recorded Time Xr, Shoulder, 2 Or More View : [email or web address] Encrypted=ndTrRriIF7iXmcO Uv6g%7TYZumKbiey2sgqg%2Fg 7PDy7lyEtnW0jNoYLpacYs4Ca ZARbXwxAJP3eCnYFulv21g266 5AJ9WwiRgVYxcjXX4en04%3D Not Available [facility] 04/19/2024 13:2 3:00 Xr, Shoulder, 2 Or More View : [email or web address] Encrypted=byLsXywKQ4aYsqV Uv6g%2YANilChodu4dpgp%2Fg 6RUk3feMsoR1nOrWMxfmVa5Cs ILMqJthNPT1jRcJKmji11e963 5WH4OvmWdNHacqUR8qd59%3D Not Available [facility] 04/19/2024 13:2 3:02 Xr, Shoulder, 2 Or More View : [email or web address] Encrypted=vyQdFemZQ7wYwuL Uv6g%8IQVuxXvagb2rzha%2Fg 7MDc4erObeK6pLpMYhqvAo8Fe JXBnCvxKGD3bPkZYhns11o524 2KE6Vkg2uQESfqHtNhkOeY Not Available [facility] 12/13/2024 16:13: 18 Xr, Shoulder, 2 Or More View : [email or web address] 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 Medical Equipment None Reported. Allergies Allergen ID Allergen Name Allergen Category Reaction Reaction Severity Criticality Documentation Date Start Date Code Code System Note Provider Name and Address Organization Details Recorded Time 55044 acetamino phen / oxycodone medicatio n Not available Not available Not available 01/12/20242007 20565 3 RxNorm Aller gyRea ction : 'Skin React ion, N'; Not Available [facility] 4 13:40:23 30384 Percodan medicatio n Not available Not available Not available 01/12/20242007 99911 RxNorm Aller gyRea ction : 'Skin React ion, N'; Not Available [facility] 4 13:40:23 86791 chocolate food Not available Not available Not available 01/12/20242011 90726 8 UNK Not Available [facility] 4 13:40:23 06524 egg extract food,medi cation Not available Not available Not available 01/12/20242011 99838 15 RxNorm Not Available [facility] 4 13:40:23 68081 latex environme nt,medica tion Not available Not available Not available 01/12/20242011 86656 91 RxNorm Not Available [facility] 13:40:23 Medications Name Sig Start Date Stop Date Status Note LastModified by Organization Details LastModified Time prednisone 10 mg tablet 12/13 completed Not Available Not Available Not Available nabumetone 750 mg tablet TAKE 1 TABLET BY MOUTH TWICE DAILY active Not Available Not Available No t Available azithromyci n 250 mg tablet 12/13 completed Not Available Not Available Not Available hydroquinon e 4 % topical cream APPLY TO DARK SPOTS TWICE DAILY FOR 4 TO 6 MONTHS active Not Available Not Available No t Available tramadol 50 mg tablet TAKE 1 TABLET BY MOUTH FOUR TIMES DAILY NEEDED FOR PAIN active Not Available Not Available No t Available glimepiride 1 mg tablet TAKE 1 TABLET BY MOUTH TWICE A DAY active Not Available Not Available No t Available ketorolac 0.5 % eye drops PLACE 1 DROP INTO BOTH EYES TWICE DAILY 12/13 completed Not Available Not Available Not Available Lee Thyroid 15 mg tablet TAKE 1 TABLET BY MOUTH EVERY MORNING active Not Available Not Available No t Available amitriptyli ne 10 mg tablet TAKE 2 TABLETS BY MOUTH EVERY NIGHT AT BEDTIME active Not Available Not Available No t Available meclizine 25 mg tablet TAKE 1 TABLET BY MOUTH EVERY NIGHT AT BEDTIME NEEDED active Not Available Not Available No t Available cephalexin 500 mg capsule TAKE 2 CAPSULES BY MOUTH ONE HOUR PRIOR AND 2 CAPSULES BY MOUTH 4 HOURS AFTER PROCEDURE . 12/13 completed Not Available Not Available Not Available clotrimazol e-betametha sone 1 %-0.05 % topical cream APPLY TOPICALLY TO THE AFFECTED AREA TWICE DAILY active Not Available Not Available No t Available lansoprazol e 30 mg capsule,del ayed release TAKE 1 CAPSULE BY MOUTH TWICE DAILY active Not Available Not Available No t Available hydrochloro thiazide 25 mg tablet TAKE 1 TABLET BY MOUTH DAILY active Not Available Not Available No t Available Lee Thyroid 30 mg tablet TAKE 1 TABLET BY MOUTH DAILY WITH ADDITIONA L 15 MG NEEDED active Not Available Not Available No t Available gabapentin 100 mg capsule active Not Available Not Available Not Available azelastine 137 mcg (0.1 %) nasal spray USE 2 SPRAYS IN EACH NOSTRIL TWICE DAILY active Not Available Not Available No t Available methylpredn isolone 4 mg tablets in a dose pack FOLLOW PACKAGE DIRECTION S 12/13 completed Not Available Not Available Not Available albuterol sulfate HFA 90 mcg/actuati on aerosol inhaler INHALE 1 TO 2 PUFFS BY MOUTH EVERY 4 HOURS NEEDED active Not Available Not Available No t Available betamethaso ne dipropionat e 0.05 % topical ointment active Not Available Not Available Not Available glyburide 1.25 mg tablet TAKE 2 TABLETS BY MOUTH EVERY MORNING AND TAKE 1 TABLET EVERY EVENING active Not Available Not Available No t Available fluticasone propionate 50 mcg/actuati on nasal spray,suspe nsion SHAKE LIQUID AND USE 1 SPRAY IN EACH NOSTRIL TWICE DAILY NEEDED active Not Available Not Available No t Available atenolol 50 mg tablet TAKE 1 TABLET BY MOUTH EVERY MORNING AND 1/2 TABLET EVERY EVENING active Not Available Not Available No t Available diazepam 5 mg tablet TAKE 1 TABLET BY MOUTH 2 HOURS PRIOR TO MRI THEN 1 TABLET BY MOUTH 30 MINUTES PRIOR TO MRI.HAVE SOMEONE DRIVE YOU BACK AND FORTH FOR THE MRI active Not Available Not Available No t Available cyclosporin e 0.05 % eye drops in a dropperette PLACE 1 DROP INTO BOTH EYES TWICE DAILY active Not Available Not Available No t Available Pulmicort Flexhaler 90 mcg/actuati on breath activated INHALE 1 PUFF BY MOUTH TWICE DAILY 12/13 completed Not Available Not Available Not Available estradiol 10 mcg vaginal tablet INSERT 1 TABLET VAGINALLY EVERY FRIDAY AND FRIDAY active Not Available Not Available No t Available Jardiance 25 mg tablet TAKE 1 TABLET BY MOUTH DAILY active Not Available Not Available No t Available Accu-Chek Guide test strips USE TO TEST BLOOD SUGARS SIX TIMES DAILY 12/13 completed Not Available Not Available Not Available Paxlovid 300 mg (150 mg x 2)-100 mg tablets in a dose pack TAKE 3 TABLETS BY MOUTH TWICE A DAY FOR 5 DAYS 12/13 completed Not Available Not Available Not Available Vitals Date Recorded Body height Body mass index (BMI) Body weight Provider Name and Address Organization Details Last Updated DateTime 12/13/2024 160.02 cm 31 kg/m2 72006.66 g REGINALDO LOPEZ [place] - [facility] 12/13/2024 16:01:41 Date Recorded Body height Body mass index (BMI) Body weight Provider Name and Address Organization Details Last Updated DateTime 04/19/2024 160.02 cm 31 kg/m2 60660.66 g Lopez Capps [place] - [facility] 04/19/2024 13:14:24 Social History None recorded. Functional Status None recorded. Mental Status None recorded. Family History Nothing Reported. Medical History Condition Response Coronary Artery Disease N Anxiety/Depression N Emphysema N COPD N Pacemaker N Vascular Disease N Heart Trouble N Gastrointestinal Disease N Autoimmune disease N Orthotics N Arthritis Y Blood Clot N Acid Reflux (GERD) N Cancer N Stroke N Circulation Problems Y Rheumatoid Arthritis N Arrhythmia N Headaches N Fibromyalgia N Allergies/Hayfever N Breathing or lung disorders N Nerve Disorders Y Thyroid Problems Y Kidney/Bladder Problems N Anemia Y Heart Attack (MD) N Cholesterol N Diabetes Y Bleeding Disorder N Seizures/Epilepsy N AIDS/HIV N Congestive Heart Failure (CHF) N Asthma N Peripheral Vascular Disease N Sleep Apnea N Hepatitis N Heart Disease N Pulmonary Embolism N Hypertension N Osteoporosis N Gynecological HistoryNo gynecological history recorded. Obstetrics History GPAL:G 0 P 0 0 0 0 Past Encounters Encounter ID Performer Location Encounter Start Date Encounter Closed Date Diagnosis/Indication Diagnosis SNOMED-CT Code Diagnosis ICD10 Code Diagnosis Note [id number] MD [facility] [address] [place] [address] 04/19/2024 13:05:58 05/07/2024 07:51:21 Pain of right shoulder joint 0079744707 1034466 M25.511 Arthropath y of right shoulder 1213613850 2294176 M12.811 Full thick ness rotator cuff tear 198129917 M75.964 [id number] MD GENESIS Sald[facility] - [address] [place] [address] 12/13/2024 15:53:22 12/27/2024 10:17:17 Pain of right shoulder joint 9656461148 7858897 M25.511 Nontraumat ic complete rupture of rotator cuff of right shoulder 6769691804 977378 M75.121 Nontraumat ic complete rupture of rotator cuff of left shoulder 7765946460 626013 M75.122 Health Concerns Section Related Observation LastModified by Organization Detai ls LastModified Time None Recorded Concern Status LastModified by Organization Details LastModified Time None Recorded Advance Directives Directive None Recorded Payers Insurance Date Sequence Insurance Name Policy Number Policy Ivory Covered Member ID Ivory Member ID Guarantor Name 12/13/2024 1 [place] [employer] Alina Mckeon [id number] Alina Mckeon 12/27/2024 2 [place] [place] [place] Alina Mckeon [id number] Alina Mckeon Notes Date Note Type Note Provider Name and Address Organization Details Recorded Time 04/19/2024 text/html Issue:- Right shoulder cuff tear arthropathy- Left shoulder rotator cuff tearInterval History: This is a 79-year-old right hand dominant woman with a known Right large/massive rotator cuff tear 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 This has been largely asymptomatic for her recently. Notes that crepitus she had noted 6 months ago has quieted, fairly rare at this point. Aware of some weakness with external rotation, but does not feel she has lost range of motion.Biggest recent complaint has been her left shoulder, beginning about a year and a half ago. Had an MRI here demonstrating a large rotator cuff tear, concerning for signs of irreparability. Symptoms from this have diminished significantly over time, not requiring cortisone. No loss of motion, no appreciable loss of strength at this time. Occasional pinching posteriorly with overhead movements, but still quite tolerable.Past family, medical, social history and review of systems have been reviewed and updated on the medical history sheet saved to the patient's chart. A 12-point review of systems is negative x12 except as noted above and/or on the medical history sheet.Examination: Very pleasant 78-year-old woman in no acute distress. 5 feet 3 inches, 160 pounds. On exam of the left upper extremity, skin over the shoulder is intact. No effusion, no gross atrophy. Tender to palpation of the bicipital groove. Active and passive [place] elevation 170 with mild subacromial crepitus. Passive external rotation 75-negative year lag. Internal rotation L3. 5/5 with resisted ER without pain. 5-/5 with empty can with pain. Pain with bearhug maneuver. Positive Yergason's. Motor and sensation grossly intact distally.On exam of the right upper extremity, skin over the shoulder is intact. No effusion, no gross atrophy. Active and passive forward elevation 170, ER 55, IR L4. 4/5 with ER, 5-/5 with empty can, 5/5 with IR. Negative Yergason's. Motor and sensation grossly intact distally.Imagin views of the right shoulder ordered and obtained at [facility] today were reviewed during visit. This again demonstrated a high riding humeral head, consistent with cuff tear arthropathy. No significant change from xrays in April. Anterior acromion demonstrates minimal thinning, plenty of good bone stock, nothing near being concerned about inability to go forward with reverse total shoulder arthroplasty as needed.4v of the left shoulder ordered and obtained at [facility] 02/26/2021 independently reviewed by me on Ortho[facility] during the visit today. These demonstrate good preservation of glenohumeral and a.c. joint spaces. The preservation of acromial humeral interval distance. No dystrophic calcium deposition. Type II acromion. Humeral head centered on axillary view.Left shoulder MRI performed at [facility] 11/25/2022 independently reviewed by me on Ortho[facility]ACS during the visit today. This is unfortunately quite a poor study, very grainy and blurry. This does confirm a full-thickness tear of the rotator cuff involving the supraspinatus. Infraspinatus largely benavides be intact, though tedinopathic throughout. High-grade partial thickness if not full-thickness tear of the upper portion of the subscapularis, though significant motor motion artifact on axial sequences in particular makes this very difficult to interpret. Significant intra-articular tendinopathy long head biceps tendon, which appears to remain intact. Early degenerative changes to glenohumeral articular cartilage, primarily affecting the posterior half of the glenoid. Large cyst within the distal clavicle. Type II acromion. Severe atrophy and fatty infiltration of the supraspinatus, mild atrophy without fatty infiltration of the infraspinatus, subscapularis intact on T1 sagittals. T2 bright, T1 dark changes throughout the marrow of the proximal humerus, interpreted by the radiologist as consistent with marrow reconversion.Impres kimber: 78-year-old right-hand dominant woman with right sided cuff tear arthropathy. With activity modification, this remains essentially asymptomatic. Some signs of a little bit of wear of the anterior acromion, but still with plenty of bone stock left. Left shoulder symptoms related to the anterior superior cuff tear had essentially resolved.Plan: Right shoulder is essentially asymptomatic at this time. At this time, with excellent range of motion and no pain, would not recommend reverse total shoulder arthroplasty. She continues to be concerned about wearing the acromion to the extent that we cannot go forward with reverse total shoulder arthroplasty if needed in the future. As such I will plan to see her back in another 6 months with new x-rays of the right shoulder. She will call sooner with any new or worsening symptoms in the interim. Left shoulder also doing relatively well, intermittent pain but tolerable. Encouraged to call if she feels she would like to go ahead with a cortisone injection prior to next appointment.[employer] speech recognition hand etcher software was used to create portions of this document. An attempt at proofreading has been made to minimize errors. Please call for corrections. Natalia Chu MD [address] [place] [address] [facility], [place], [address], [facility] - [facility] 04/19/2024 13:33:34 12/13/2024 text/html Issue:- Right shoulder cuff tear arthropathy- Left shoulder rotator cuff tearInterval History: This is a 79-year-old right hand dominant woman with a known Right large/massive rotator cuff tear 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 This has been largely asymptomatic for her recently. Notes that crepitus she had noted last year has quieted, fairly rare at this point. Aware of some weakness with external rotation, but does not feel she has lost range of motion.Biggest recent complaint has been her left shoulder, beginning about 2 years ago. Had an MRI here demonstrating a large rotator cuff tear, concerning for signs of irreparability. Symptoms from this have diminished significantly over time, not requiring cortisone. No loss of motion, no appreciable loss of strength at this time. Occasional pinching posteriorly with overhead movements, but still quite tolerable.Past family, medical, social history and review of systems have been reviewed and updated on the medical history sheet saved to the patient's chart. A 12-point review of systems is negative x12 except as noted above and/or on the medical history sheet.Examination: Very pleasant 78-year-old woman in no acute distress. 5 feet 3 inches, 160 pounds. On exam of the left upper extremity, skin over the shoulder is intact. No effusion, no gross atrophy. Tender to palpation of the bicipital groove. Active and passive forward elevation 170 with mild subacromial crepitus. Passive external rotation 75-negative year lag. Internal rotation L3. 5/5 with resisted ER without pain. 5-/5 with empty can with pain. Pain with bearhug maneuver. Positive Yergason's. Motor and sensation grossly intact distally.On exam of the right upper extremity, skin over the shoulder is intact. No effusion, no gross atrophy. Active and passive forward elevation 170, ER 55, IR L4. 4/5 with ER, 5-/5 with empty can, 5/5 with IR. Negative Yergason's. Motor and sensation grossly intact distally.Imagin views of the right shoulder ordered and obtained at [facility] today were reviewed during visit. This again demonstrated a high riding humeral head, consistent with cuff tear arthropathy. No significant change from xrays in April. Anterior acromion and distal clavicle demonstrate minimal thinning, plenty of good bone stock, nothing near being concerned about inability to go forward with reverse total shoulder arthroplasty as needed.4v of the left shoulder ordered and obtained at [facility] today independently reviewed by me on OrthoPACS during the visit today. These demonstrate good preservation of glenohumeral and a.c. joint spaces. Good preservation of acromial humeral interval distance. No dystrophic calcium deposition. Type II acromion. Humeral head centered on axillary view.Left shoulder MRI performed at [facility] 11/25/2022 independently reviewed by me on Orth[facility]PACS during the visit today. This is unfortunately quite a poor study, very grainy and blurry. This does confirm a full-thickness tear of the rotator cuff involving the supraspinatus. Infraspinatus largely benavides be intact, though tedinopathic throughout. High-grade partial thickness if not full-thickness tear of the upper portion of the subscapularis, though significant motor motion artifact on axial sequences in particular makes this very difficult to interpret. Significant intra-articular tendinopathy long head biceps tendon, which appears to remain intact. Early degenerative changes to glenohumeral articular cartilage, primarily affecting the posterior half of the glenoid. Large cyst within the distal clavicle. Type II acromion. Severe atrophy and fatty infiltration of the supraspinatus, mild atrophy without fatty infiltration of the infraspinatus, subscapularis intact on T1 sagittals. T2 bright, T1 dark changes throughout the marrow of the proximal humerus, interpreted by the radiologist as consistent with marrow reconversion.Mare quiroga: 79-year-old right-hand dominant woman with right sided cuff tear arthropathy. With activity modification, this remains essentially asymptomatic. Some signs of a little bit of wear of the anterior acromion, but still with plenty of bone stock left. Left shoulder symptoms related to the anterior superior cuff tear have essentially resolved.Plan: Right shoulder is essentially asymptomatic at this time. At this time, with excellent range of motion and no pain, would not recommend reverse total shoulder arthroplasty. She continues to be concerned about wearing the acromion to the extent that we cannot go forward with reverse total shoulder arthroplasty if needed in the future. As such I will plan to see her back in another 6 months with new x-rays of the right shoulder. She will call sooner with any new or worsening symptoms in the interim. Left shoulder also doing relatively well, intermittent pain but tolerable. Encouraged to call if she feels she would like to go ahead with a cortisone injection prior to next appointment.[facility] [employer] [facility] speech recognition hand etcher software was used to create portions of this document. An attempt at proofreading has been made to minimize errors. Please call for corrections. Natalia Chu MD [facility] [address], [place], [address], [facility] - [facility] 12/13/2024 16:40:22 OBGyn Episode No OBEpisode recorded.
== END 2025-05-30 07:20 | disposition home or self-care (01) ==
LOC: HO.HOSX 07:19
PROVIDERS: Visit Provider Orthopaedic Surgery
DX: M25.562 Pain in left knee (principal)
CPT/HCPCS: 73562; 99212

== ENCOUNTER → 2025-05-30 10:17 | Outpatient (BNV) | payer MEDICARE, BC, SELFPAY | PROVIDERS: Visit Provider Radiology Diagnostic Radiology | DX: M25.562 Pain in left knee (principal) | CPT/HCPCS: 73562 ==

== ENCOUNTER 2025-05-30 10:22 | Outpatient (AMB) | payer MEDICARE, BC, SELFPAY ==
--- NOTE | 2025-05-30 10:37 | A.OFFVIS_ITS ---
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 She denies any fevers or chills. She states that her right knee pain has gotten worse over the last year. Most of the pain is along the medial aspect of her right knee. She has failed the last 6 weeks of conservative treatment which has included Tylenol, anti-inflammatory medicines, a home exercise program and physical therapy exercises. She states that her right knee will give out several times per day. Allergies Seasonal Allergies Allergy (Mild, Verified 10/10/23 11:17) Unknown acetaminophen (From Percocet) Adverse Reaction (Verified 05/30/25 10:42) rash oxycodone (From Percocet) Adverse Reaction (Verified 05/30/25 10:42) rash Medication List - Last Reconciled 05/30/25 by Logan Rodríguez MD amitriptyline 20 mg PO BEDTIME atenolol 50 mg PO DAILY blood sugar diagnostic (Accu-Chek Guide test strips) As directed blood-glucose meter (Accu-Chek Guide Glucose Meter) As directed cyclosporine 0.05% 1 drp ophthalmic (eye) BID empagliflozin (Jardiance) 25 mg PO DAILY fluticasone propionate 50 mcg/actuation 1 spray intranasal BID PRN gabapentin 0 mg PO glyburide 1.25 mg PO BID hydrochlorothiazide 25 mg PO DAILY lancets (Accu-Chek Fastclix Lancet Drum) As directed lansoprazole 30 mg PO BID nabumetone 500 mg PO BID nabumetone 750 mg PO BID peg-electrolyte soln 420 gram 240 mL PO Q10M thyroid (pork) ([place] Thyroid) 15 mg PO QAM thyroid (pork) ([place] Thyroid) 30 mg PO DAILY tramadol 50 mg PO QID PRN PFSH Medical History FHx: total abdominal hysterectomy and bilateral salpingo-oophorectomy Surgical History H/O: hysterectomy History of esophagogastroduodenoscopy (EGD) History of left knee replacement Hx of colonoscopy Hx of rectal polypectomy Hx of tonsillectomy Family History Mother Kidney failure Heart failure Father Diabetes Heart problem Sister Heart failure Paternal Aunt Colon cancer Hx of lymphoma Paternal Aunt Liver cancer Breast cancer Maternal Grandfather Colon cancer Daughter Lyme disease Physical Exam Vital Signs: BMI result Body Mass Index 26.9 Const Other: Well-nourished well-developed very friendly female awake alert and oriented x3 in no acute distress Extrem Other: Left knee examination shows that the surgical incision is well healed, no erythema, full active extension and flexion to 120 degrees, her patella tracks well Right knee examination shows a minimal effusion, minimal crepitus with range of motion, tenderness along her medial joint line, positive Silvia's test, no instability Results Reviewed Results Reviewed: X-rays of the patient's right knee show mild diffuse joint space narrowing, no acute bony abnormalities X-rays of the patient's left knee show a total knee arthroplasty in good position with no signs of loosening Assessment & Plan Assessment & Plan (1) Left knee pain: Code(s): M25.562 - Pain in left knee Category: Medical (2) Tear of medial meniscus of right knee: Code(s): S83.241A - Other tear of medial meniscus, current injury, right knee, initial encounter Category: Medical Plan Ms. Mckeon presents with right knee pain and mechanical symptoms most likely due to a medial meniscus tear. Thus, I will send the patient for an MRI of her right knee for further evaluation. She also has continued discomfort after undergoing left total knee replacement surgery several years ago of unclear etiology. I will refer her to Dr. Tyson from our pain management department for further evaluation. I will see her back once her MRI is completed to discuss the findings and treatment options. Feel free to call me at any time should questions regarding her orthopedic management arise. I spent 21 minutes in reviewing the patient's records and imaging studies, seeing the patient and documenting in the medical record. Orders: Orders XR knee LT 3V 05/30/25 M25.562 - Pain in left knee MR knee RT wo con Today S83.241A - Other tear of medial meniscus, current injury, right knee, initial encounter Referrals Pain Management Referral M25.562 - Pain in left knee Medications: New lorazepam (Ativan) Take one tab 2 hours before your MRI; take the second tab 30 minutes before your MRI 1 mg PO ONCE 2 tabs 0RF anxiety Coding Level of Care Code Est Pt Level 3 (51809) Complex EM visit Add On G2211 Diagnoses Left knee pain M25.562 Tear of medial meniscus of right knee S83.241A
[2025-05-30 10:41] VITALS: BMI 26.9
== END 2025-05-30 11:06 | disposition home or self-care (01) ==
LOC: HO.HOS 10:23
PROVIDERS: PCP Internal Medicine; Visit Provider Orthopaedic Surgery
DX: M25.562 Pain in left knee (principal); S83.241A Other tear of medial meniscus, current injury, right knee, initial encounter
CPT/HCPCS: 99213; G2211

== ENCOUNTER 2025-06-20 10:57 | Outpatient (AMB) | payer MEDICARE, BC, SELFPAY ==
--- NOTE | 2025-06-20 11:01 | A.OFFVIS_ITS ---
Vital Signs 06/20/25 11:02 Height 5 ft 4 in Weight 154 lb BMI 26.4 Intake Visit Reasons: OV- Right knee MRI results- [facility] Intake Note: Alina is a 80 year old female who presents with complaints of intermittent discomfort in her right knee. She describes her discomfort as achy in nature. She did undergo left total knee replacement surgery several years ago by Dr. Woodward. She reports minimal discomfort in her left knee. She wishes to hold off on right knee surgery for as long as possible. She has tried Tylenol which gives her mild relief. Allergies Seasonal Allergies Allergy (Mild, Verified 06/20/25 11:02) Unknown acetaminophen (From Percocet) Adverse Reaction (Verified 06/20/25 11:02) rash oxycodone (From Percocet) Adverse Reaction (Verified 06/20/25 11:02) rash Medication List - Last Reconciled 06/20/25 by Logan Rodríguez MD amitriptyline 20 mg PO BEDTIME atenolol 50 mg PO DAILY blood sugar diagnostic (Accu-Chek Guide test strips) As directed blood-glucose meter (Accu-Chek Guide Glucose Meter) As directed cyclosporine 0.05% 1 drp ophthalmic (eye) BID empagliflozin (Jardiance) 25 mg PO DAILY fluticasone propionate 50 mcg/actuation 1 spray intranasal BID PRN gabapentin 0 mg PO glyburide 1.25 mg PO BID hydrochlorothiazide 25 mg PO DAILY lancets (Accu-Chek Fastclix Lancet Drum) As directed lansoprazole 30 mg PO BID lorazepam (Ativan) 1 mg PO ONCE nabumetone 500 mg PO BID nabumetone 750 mg PO BID peg-electrolyte soln 420 gram 240 mL PO Q10M thyroid (pork) ([place] Thyroid) 15 mg PO QAM thyroid (pork) ([place] Thyroid) 30 mg PO DAILY tramadol 50 mg PO QID PRN PFSH Medical History FHx: total abdominal hysterectomy and bilateral salpingo-oophorectomy Surgical History H/O: hysterectomy History of esophagogastroduodenoscopy (EGD) History of left knee replacement Hx of colonoscopy Hx of rectal polypectomy Hx of tonsillectomy Family History Mother Kidney failure Heart failure Father Diabetes Heart problem Sister Heart failure Paternal Aunt Colon cancer Hx of lymphoma Paternal Aunt Liver cancer Breast cancer Maternal Grandfather Colon cancer Daughter Lyme disease Physical Exam Vital Signs: BMI result Body Mass Index 26.4 Const Other: Well-nourished well-developed very friendly female awake alert and oriented x3 in no acute distress Extrem Other: Bilateral lower extremity examination shows good capillary refill, no skin lesions noted, normal sensation light touch Right knee examination shows a minimal effusion, mild crepitus with range of motion, tenderness along her medial joint line, positive Silvia's test, no instability Results Reviewed Results Reviewed: MRI of the patient's right knee shows mild to moderate diffuse degenerative changes as well as a medial meniscus tear Assessment & Plan Assessment & Plan (1) Tear of medial meniscus of right knee: Code(s): S83.241A - Other tear of medial meniscus, current injury, right knee, initial encounter Category: Medical Plan Ms. Mckeon presents with intermittent right knee discomfort due to degenerative joint disease as well as a medial meniscus tear. I had a lengthy discussion with the patient regarding the treatment options. At this point the patient's symptoms are tolerable to her. She will continue with her activity modifications. She will follow up with me on an as-needed basis should her symptoms worsen in any way. Feel free to call me at any time should questions regarding her orthopedic management arise. I spent 22 minutes in reviewing the patient's records and imaging studies, seeing the patient and documenting in the medical record. Coding Level of Care Code Est Pt Level 3 (77273) Complex EM visit Add On G2211 Diagnoses Tear of medial meniscus of right knee S83.241A
[2025-06-20 11:02] VITALS: BMI 26.4
--- OUTSIDE RECORDS SUMMARY | 2025-06-20 11:41 | XMS_ITS | Clinical Summary ---
Author Organization [facility] Address [address] [place] [address] Phone Care Team Providers Care Recruiting Coordinator Name Role Phone Young Jimenez MD Primary [...] Surgery [facility] Virtual Department [address] [place] [id number] Annamarie Coker MD ESOPHAGOGASTRODUODENOSCOPY 5 11:54 AM EDT Anesthesia Event [facility] Virtual Department [address] [place] [address] Fauzia Aranda MD 5 10:21 AM EDT - 5 12:41 PM EDT Hospital Encounter [facility] Virtual Department [address] [place] [address] Annamarie Coker MD Discharge Disposition: Home or Self Care 5 Transcribe Orders [facility] [address] [place] [address], [address] [place] [address] Annamarie Coker MD Melena (Primary Dx); Fundic gland polyps of stomach, benign 5 Procedure Pass [facility] Virtual Department [address] [place] [phone] 5 9:30 AM EDT Pre-Admission Testing Pre Procedure Evaluation [address] [place] [address] Annamarie Coker MD from Last 3 Months [...] this topic Medical Devices Implanted Type Area Bolting Machine Operator Device Identifier Shelf Expiration Date Model / Serial / Lot Prosthetic Joint Prosthetic Joint Right: Knee Procedures Procedure Name Priority Date/Time Associated Diagnosis Comments HI EDG TRANSORAL BIOPSY SINGLE/MULTIPLE 05/16/2025 11:53 AM EDT 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) Special Needs Arriving 2 hours early for CBC and type & screen - per office HI ESOPHAGOGASTRODUODENOSCOP Y TRANSORAL DIAGNOSTIC 05/16/2025 11:53 AM [...] Coker MD - 05/16/2025 11:45 AM EDT [facility] Patient Name: Alina Mike Attending MD:: ANNAMARIE COKER MD, Procedure Date: 05/16/2025 11:45 AM Date of : 1945 Age: 80 Admit Type: Outpatient Gender: Female Room: [place] [address] Referring MD: Young Jimenez MD Exam Type: [...] 11:45 AM Procedure Code(s): --- Professional --- 44586, Esophagogastroduodenoscopy, flexible, transoral; diagnostic, including collection of specimen(s) by brushing or washing, when performed (separate procedure) --- Technical --- 92977, Esophagogastroduodenoscopy, flexible, transoral; diagnostic, including collection of [...] parts of digestive tract CPT copyright 2021 [employer]. All rights reserved. The codes documented in this report are preliminary and upon equipment operator intermodal yard reviewmay be revised to meet current compliance requirements. Procedure Date: 05/16/2025 11:45:[address] [place] [id number] Young Jimenez MD GI PROCEDURE ORDERABLES Final Result * (ABNORMAL) CBC (05/16/2025 10:58 AM EDT) WBC 10.82 4.00 - 11.00 K/uL [facility] RBC 4.54 4.00 - 5.20 M/uL [facility] HGB 12.7 12.0 - 16.0 g/dL [facility] HCT 39.1 36.0 - 46.0 % [facility] PLT 340 150 - 450 K/uL [facility] MCV 86.1 80.0 - 100.0 fL [facility] MCH 28.0 27.0 - 31.0 pg [facility] MCHC 32.5 32.0 - 36.0 g/dL [facility] RDW 14.2 11.5 - 14.5 % [facility] MPV 8.1(L) 8.4 - 12.0 fL [facility] NRBC 0.00 0.00 /100 WBCs [facility] ABSOLUTE NRBC 0.00 0.00 K/uL [facility] Blood 05/16/2025 10:5 8 AM EDT 05/16/2025 11:16 AM EDT us Annamarie Coker MD LAB BLOOD ORDERABLES Final Res ult [address] [address] * Type and Screen (ABO,Rh,Antibody Screen) (05/16/2025 10:58 AM EDT) ABO/Rh A Positive [facility] Antibody Screen Negative [facility] Expiration Date of Sample 05/19/2025,2 359 [facility] Resulting Agency [facility] Blood 05/16/2025 10:5 8 AM EDT 05/16/2025 11:16 AM EDT us Annamarie Coker MD BLOOD BANK TEST ORDERABLES Fin al Result Performing Organization Address City/[facility]/ZIP Co de Phone Number [address] [address] * Outside Procedure (05/16/2025) us Scanning Interface Provider PROCEDURE/MINOR SURG ICAL PERFORMABLES Final Result * Outside Lab (05/16/2025) us Scanning Interface Provider LAB BLOOD ORDERABLES Final Result * Outside Pathology (05/16/2025) us Scanning Interface Provider PATHOLOGY ORDERABLES Final Result from Last 3 Months Insurance MEDICARE PART A & B [facility] MEDICARE PART A & B [facility] MEDICARE PART A & B [facility] MEDICARE [facility] A & B [facility] [place] [address] MEDICARE PART A & B [facility] MEDICARE PART A & B [facility] MEDICARE PART A & B Member Subscriber Plan / Payer (Ef fective 2011-Present) Name:[employer] Alina Member ID:[id number] Relation to Subscriber:Self Name:Mike Alina Subscriber ID:[id number] Payer ID:[id number] Group ID:Not on file Type:Medicare Address: [employer] [address] [place] [address] [place] [address] MEDICARE PART A & B [facility] FLAQUITO ALMEIDA MEDICARE PART A & B [facility] Care Teams Recruiting Coordinator Relationship Specialty Start Date End Date Young Jimenez MD [address] [place] [id number] PCP - General Internal Medicine 02/15/19 Additional Source Comments The information contained in this document represents components of the legal health record. It is not the complete legal health record.[facility]
--- OUTSIDE RECORDS SUMMARY | 2025-06-20 11:41 | XMS_ITS | Clinical Summary ---
Author Organization [facility] [address] [facility] Address [address] [place] [address] Phone Care Team Providers Care Hydraulic Press In Operator Name Role Phone Unavailable Primary Care Provider [...] Recently Relevant to Health Maintenance Insurance MEDICARE [facility]ICARE [facility] MEDICARE [facility] MEDICARE [facility]
--- OUTSIDE RECORDS SUMMARY | 2025-06-20 11:41 | XMS_ITS | Clinical Summary ---
Author Organization [facility] Address [address] [place] [address] Care Team Providers Care Nursing Manager Name Role Phone Young Jimenez MD Primary Care Provider [phone] Allergies Active Allergy Reactions Criticality Noted Date Comments Amoxicillin Diarrhea Low 04/04/2021 Buspirone Other (See Comments) Medium 04/04/2021 [place] more anxious Propoxyphene Anaphylaxis High 04/04/2021 Passed [...] age to complete this topic Care Teams Nursing Manager Relationship Specialty Start Date End Date Young Jimenez MD [address] [place] [id number] PCP - General Billing Coordinator 12/25/16
--- OUTSIDE RECORDS SUMMARY | 2025-06-20 11:41 | XMS_ITS | Encounter Summary ---
Author Organization [facility] Address [address] [place] [address] Care Team Providers Care Slab Miller Operator Name Role Phone Young Lema MD Primary Care Provider [phone] Encounter Details Date Type Department Care Team (Latest Contact Info) Description 12/22/2024 Lab Requisition [facility] - Main Lab [address] [facility] [place] [address] Young Lema MD [address] [place] [address] Acute upper respiratory infection, unspecified; Type 2 [...] Care Team (Late st Contact Info) Description 08/04/2025 2:00 PM EDT Office Visit [facility] Hematology Oncology [address] [place] [phone] Emile Webber MD [address] [place] [phone] 03/13/2026 11:00 AM EDT Ancillary Procedure [facility] Cardiology [facility] [address] [phone] 03/20/2026 12:00 PM EDT Ancillary Procedure [facility] [address] [phone] documented as of this encounter Procedures Procedure [...] K/mcL LAB HEMETOLOGY METHOD 12/22/2024 4:14 PM [facility] RBC 3.60(L) 3.80 - 4.80 M/mcL LAB HEMETOLOGY METHOD 12/22/2024 4:14 PM [facility] Hemoglobin 10.7(L) 11.5 - 16.0 g/dL LAB HEMETOLOGY METHOD 12/22/2024 4:14 PM [facility] Hematocrit 34.0(L) 35.0 - 47.0 % LAB HEMETOLOGY METHOD 12/22/2024 4:14 PM [facility] MCV 95.8 79.0 - 98.0 FL LAB HEMETOLOGY METHOD 12/22/2024 4:14 PM [facility] MCH 30.1 27.0 - 32.0 pcg LAB HEMETOLOGY METHOD 12/22/2024 4:14 PM [facility] MCHC 31.5(L) 32.0 - 37.0 g/dL LAB HEMETOLOGY METHOD 12/22/2024 4:14 PM [facility] RDW 15.7(H) 11.0 - 15.0 % LAB HEMETOLOGY METHOD 12/22/2024 4:14 PM [facility] Platelets 285 130 - 400 K/mcL LAB HEMETOLOGY METHOD 12/22/2024 4:14 PM [facility] MPV 8.5 7.0 - 11.0 FL LAB HEMETOLOGY METHOD 12/22/2024 4:14 PM [facility] NRBC 0.0 <1.0 % LAB HEMETOLOGY METHOD 12/22/2024 4:14 PM [facility] NRBC Absolute 0.00 <0.10 K/mcL LAB HEMETOLOGY METHOD 12/22/2024 4:14 PM [facility] Neutrophils Relative 72.4 % LAB HEMETOLOGY METHOD 12/22/2024 4:14 PM [facility] Lymphocytes Relative 13.6 % LAB HEMETOLOGY METHOD 12/22/2024 4:14 PM [facility] Monocytes Relative 7.4 % LAB HEMETOLOGY METHOD 12/22/2024 4:14 PM [facility] Eosinophils Relative 5.1 % LAB HEMETOLOGY METHOD 12/22/2024 4:14 PM [facility] Basophils Relative 1.1 % LAB HEMETOLOGY METHOD 12/22/2024 4:14 PM [facility] Immature Granulocytes Relative 0.4 % LAB HEMETOLOGY METHOD 12/22/2024 4:14 PM [facility] Neutrophils Absolute 4.12 1.50 - 7.00 K/mcL LAB HEMETOLOGY METHOD 12/22/2024 4:14 PM [facility] Lymphocytes Absolute 0.77(L) 1.00 - 5.00 K/mcL LAB HEMETOLOGY METHOD 12/22/2024 4:14 PM [facility] Monocytes Absolute 0.42 0.20 - 1.00 K/mcL LAB HEMETOLOGY METHOD 12/22/2024 4:14 PM [facility] Eosinophils Absolute 0.29 0.00 - 0.50 K/mcL LAB HEMETOLOGY METHOD 12/22/2024 4:14 PM EST [facility] Basophils Absolute 0.06 0.00 - 0.20 K/mcL LAB HEMETOLOGY METHOD 12/22/2024 4:14 PM [facility] Immature Granulocytes Absolute 0.02 0.00 - 0.03 K/mcL LAB HEMETOLOGY METHOD 12/22/2024 4:14 PM [facility] Blood Venous blood specimen / Unknown 12/22/2024 1:22 PM EST 12/22/2024 3:56 PM EST us Young Lema MD LAB BLOOD ORDERABLES Final Res ult [facility] [address] [place] [address], * (ABNORMAL) Comprehensive metabolic panel (12/22/2024 1:22 PM EST) Sodium 137 133 - 145 mmol/L LAB CHEMISTRY METHOD 12/22/2024 4:26 PM [facility] Potassium 3.7 3.5 - 5.5 mmol/L LAB CHEMISTRY METHOD 12/22/2024 4:26 PM [facility] Chloride 103 96 - 110 mmol/L LAB CHEMISTRY METHOD 12/22/2024 4:26 PM [facility] CO2 30 21 - 32 mmol/L LAB CHEMISTRY METHOD 12/22/2024 4:26 PM [facility] Anion Gap 4 3 - 11 LAB CHEMISTRY METHOD 12/22/2024 4:26 PM [facility] Glucose 109(H) 70 - 100 mg/dL LAB CHEMISTRY METHOD 12/22/2024 4:26 PM [facility] BUN 25 5 - 25 mg/dL LAB CHEMISTRY METHOD 12/22/2024 4:26 PM [facility] Creatinine 1.06 0.50 - 1.10 mg/dL LAB CHEMISTRY METHOD 12/22/2024 4:26 PM [facility] eGFR 54(L) >=60 mL/min/1. 73m2 LAB CHEMISTRY METHOD 12/22/2024 4:26 PM [facility] Comment:Calculation based on the Chronic Kidney Disease Epidemiology Collaboration (CKD-EPI) equation refit without adjustment for race. BUN/Creatinine Ratio 23.6 LAB CHEMISTRY METHOD 12/22/2024 4:26 PM [facility] Calcium 8.9 8.5 - 10.5 mg/dL LAB CHEMISTRY METHOD 12/22/2024 4:26 PM [facility] AST (SGOT) 42 10 - 42 unit/L LAB CHEMISTRY METHOD 12/22/2024 4:26 PM [facility] ALT (SGPT) 53 10 - 60 unit/L LAB CHEMISTRY METHOD 12/22/2024 4:26 PM [facility] Alkaline Phosphatase 97 42 - 121 unit/L LAB CHEMISTRY METHOD 12/22/2024 4:26 PM [facility] Total Protein 6.7 6.0 - 8.0 g/dL LAB CHEMISTRY METHOD 12/22/2024 4:26 PM [facility] Albumin 3.8 3.2 - 5.0 g/dL LAB CHEMISTRY METHOD 12/22/2024 4:26 PM [facility] Total Bilirubin 0.4 0.0 - 1.4 mg/dL LAB CHEMISTRY METHOD 12/22/2024 4:26 PM [facility] Blood Venous blood specimen / Unknown 12/22/2024 1:22 PM EST 12/22/2024 3:56 PM EST us Young Lema MD LAB BLOOD ORDERABLES Final Res ult [facility] [address] [place] [address], [place] [phone] * Thyroid stimulating hormone with reflex to free t4 and free t3 (12/22/2024 1:22 PM EST) Pathologist [facility] TSH 1.81 0.40 - 4.00 mcIU/mL LAB CHEMISTRY METHOD 12/22/2024 4:34 PM EST [facility] Blood Venous blood specimen / Unknown 12/22/2024 1:22 PM EST 12/22/2024 3:56 PM EST Young Lema MD LAB BLOOD ORDERABLES Final Res ult [facility] [address] [place] [address], [place] [phone] * (ABNORMAL) Lipid panel with reflex to direct LDL (12/22/2024 1:22 PM EST) [facility] Cholesterol 145 0 - 200 mg/dL LAB CHEMISTRY METHOD 12/22/2024 4:26 PM [facility] Triglycerides 233(H) 0 - 150 mg/dL LAB CHEMISTRY METHOD 12/22/2024 4:26 PM [facility] HDL 38(L) >=40 mg/dL LAB CHEMISTRY METHOD 12/22/2024 4:26 PM [facility] LDL Calculated 60 0 - 100 mg/dL LAB CHEMISTRY METHOD 12/22/2024 4:26 PM [facility] VLDL Cholesterol Ham 46.6 mg/dL LAB CHEMISTRY METHOD 12/22/2024 4:26 PM [facility] Non HDL Chol. (LDL+VLDL) 107 <145 mg/dL LAB CHEMISTRY METHOD 12/22/2024 4:26 PM [facility] Chol/HDL Ratio 3.8 0.0 - 4.4 LAB CHEMISTRY METHOD 12/22/2024 4:26 PM [facility] Blood Venous blood specimen / Unknown 12/22/2024 1:22 PM EST 12/22/2024 3:56 PM EST Young Lema MD LAB BLOOD ORDERABLES Final Res ult Performing Organization Address [facility]/ZIP Co de Phone Number [facility] [address] [place] [address], [place] [phone] * Hemoglobin A1c (12/22/2024 1:22 PM EST) Hemoglobin A1C 5.6 <6.5 % LAB CHEMISTRY METHOD 12/22/2024 8:47 PM EST [facility] Mean Bld Glu Estim. 114 mg/dL LAB CHEMISTRY METHOD 12/22/2024 8:47 PM EST [facility] Blood Venous blood specimen / Unknown 12/22/2024 1:22 PM EST 12/22/2024 3:56 PM EST Young eLma MD LAB BLOOD ORDERABLES Final Res ult Performing Organization Address [facility] Co de Phone Number [facility] [address] [place] [address], [place] [phone] documented in this encounter Visit Diagnoses Diagnosis Acute upper respiratory infection, unspecified Type 2 diabetes mellitus without complications (CMS/HCC V24, CMS/HCC V28) Essential (primary) hypertension Unspecified essential hypertension Fibromyalgia Unspecified myalgia and myositis Iron deficiency anemia secondary to blood loss (chronic) Gastro-esophageal reflux disease without esophagitis documented in this encounter Care Teams Slab Miller Operator Relationship Specialty Start Date End Date Young Lema MD [address] [place] [address] PCP - General Internal Medicine 11/01/24 documented as of this encounter
== END 2025-06-20 11:36 | disposition home or self-care (01) ==
LOC: HO.HOS 10:58
PROVIDERS: Visit Provider Orthopaedic Surgery
DX: S83.241A Other tear of medial meniscus, current injury, right knee, initial encounter (principal)
CPT/HCPCS: 99213; G2211

== ENCOUNTER → 2025-06-20 10:57 | Outpatient (BNVA) | payer MEDICARE, BC, SELFPAY | PROVIDERS: Visit Provider Orthopaedic Surgery | DX: S83.241A Other tear of medial meniscus, current injury, right knee, initial encounter (principal) | CPT/HCPCS: 99212 ==

== ENCOUNTER 2025-06-27 10:53 | Outpatient (AMB) | payer MEDICARE, BC, SELFPAY ==
--- NOTE | 2025-06-27 10:55 | MHC.OFFVIS ---
Vital Signs 06/27/25 10:56 Height 5 ft 4 in Weight 155 lb BMI 26.6 BP 158/72 H Blood Pressure Location Lt brachial Position Sitting Respiration 16 Pulse 78 Pulse Source Pulse Oximeter Pulse Oximetry (%) 99 Oxygen Delivery Method Room Air Intake Visit Reasons: Pain in left knee Tan Room Supervisor Required: No Allergies Seasonal Allergies Allergy (Mild, Verified 06/27/25 11:00) Unknown Medication List - Last Reconciled 06/27/25 by Lissette Leonardo LPN acetaminophen 1,000 mg PO .HS amitriptyline 20 mg PO BEDTIME ascorbic acid (vitamin C) 500 mg PO DAILY atenolol 50 mg PO DAILY atenolol 25 mg PO .Evening biotin 1 mg PO DAILY blood sugar diagnostic (Accu-Chek Guide test strips) As directed blood-glucose meter (Accu-Chek Guide Glucose Meter) As directed calcium carbonate 500 mg PO DAILY cholecalciferol (vitamin D3) 125 mcg PO DAILY cyclosporine 0.05% 1 drp ophthalmic (eye) BID empagliflozin (Jardiance) 25 mg PO DAILY fluticasone propionate 50 mcg/actuation 1 spray intranasal BID PRN gabapentin 100 mg PO .4x daily glyburide 1.25 mg PO BID hydrochlorothiazide 25 mg PO DAILY lactobacillus combination no.9 (Adult 50 Plus Probiotic) 4,000 mmu cells PO DAILY lancets (Accu-Chek Fastclix Lancet Drum) As directed lansoprazole 30 mg PO BID magnesium oxide 400 mg PO DAILY nabumetone 750 mg PO BID prasterone (DHEA) 10 mg PO .3 x weekly thyroid (pork) (Reynolds Thyroid) 15 mg PO QAM thyroid (pork) (Reynolds Thyroid) 30 mg PO DAILY tramadol 50 mg PO QID PRN HPI HPI Pain in left knee: Details: History of Present Illness The patient is a 80-year-old female presenting with lower back pain radiating down the left leg and bilateral foot pain. The pain in her lower back is described as an aching sensation, while the pain in her feet is a burning sensation, and the calf pain is characterized by pins and needles and tingling. The intensity of the pain ranges from 6 to 8 out of 10, worsening later in the day and in the evening, and it interferes with her sleep and daily activities. The patient has a history of knee replacement and has undergone two back surgeries, including a laminectomy at the L4-5 level approximately ten years ago. She has also had a hysterectomy and oophorectomy, and she experiences nerve pain down her leg, which she associates with her previous surgeries. The patient has tried various interventions for her pain, including physical therapy at two facilities, chiropractic manipulation, acupuncture, home traction, and home exercise programs, with some relief reported. She is currently taking labucatone 750 mg twice daily, tramadol 50 mg three times a day, and Tylenol Extra Strength twice daily. She has previously received corticosteroid injections, which were initially effective but later ceased to provide relief. The patient is diabetic and notes that her foot pain worsens after consuming sweet foods, suggesting a possible link to her diabetic neuropathy. Pain Description - Onset: Chronic pain with a history of back surgeries - Quality: Aching in the back, burning in the feet, pins and needles in the calf - Location: Lower back, left leg, both feet - Radiation: Pain radiates down the left leg - Intensity: Rated 6 to 8 out of 10 - Timing: Worsens later in the day and in the evening - Exacerbating factors: Pain worsens with sweet food intake - Relieving factors: Some relief with physical therapy, chiropractic manipulation, acupuncture - Interference: Pain interferes with sleep and daily activities Physical Exam - Musculoskeletal: Positive DULCE test, tenderness over left sacroiliac joint; thrust and compression assessment equivocal Results - Imaging: MRI of the back from 2023 reviewed; multilevel DJD/DDD Pain Management - Affect: Pain interferes with sleep and daily activities - Analgesia: Currently taking labucatone 750 mg twice daily, tramadol 50 mg three times a day, and Tylenol Extra Strength twice daily - Adverse Effects: None reported - Activities of Daily Living: Pain impacts daily activities and sleep - Aberrant Drug Related Behaviors: None reported [facility] Medical History (Updated 06/28/25 @ 09:12 by Nahum Tyson MD) Hypothyroid Hypertension FHx: total abdominal hysterectomy and bilateral salpingo-oophorectomy Surgical History Hx of rectal polypectomy History of left knee replacement Hx of tonsillectomy H/O: hysterectomy History of esophagogastroduodenoscopy (EGD) Hx of colonoscopy Family History Mother Kidney failure Heart failure Father Diabetes Heart problem Sister Heart failure Paternal Aunt Colon cancer Hx of lymphoma Paternal Aunt Liver cancer Breast cancer Maternal Grandfather Colon cancer Daughter Lyme disease Physical Exam Vital Signs: Last Vital Signs Pulse 78 06/27/25 10:56 Resp 16 06/27/25 10:56 BP 158/72 H 06/27/25 10:56 Pulse Ox 99 06/27/25 10:56 Oxygen Delivery Method Room Air 06/27/25 10:56 BMI result Body Mass Index 26.6 Assessment & Plan Assessment & Plan (1) Left knee pain: Code(s): M25.562 - Pain in left knee Category: Medical (2) Sacroiliac dysfunction: Code(s): M53.3 - Sacrococcygeal disorders, not elsewhere classified Category: Medical Plan Plan - Offered a diagnostic sacroiliac joint injection as a first step to confirm the source of left low back pain. - Consider MARY for leg pain and discomfort if SI joint injection is not conclusive. - Monitor response to SI joint injection to determine if further spine intervention is necessary. - Patient to consider the proposed diagnostic injection and inform the office of her decision. Patient was informed and verbally consented to the use of an ambient scribe for clinic note documentation during this visit. Discussion Notes I discussed with the patient the possibility of a diagnostic sacroiliac joint injection to determine the source of her left low back pain. We reviewed that if the injection provides relief, it may indicate the SI joint as the pain source, and a cortisone injection could be considered. I explained the procedure, including that it involves numbing medication and is performed under x-ray guidance. The patient was advised to think about the procedure and contact the office with her decision. Patient Instructions - Consider the diagnostic sacroiliac joint injection and contact the office with your decision. - Avoid taking pain medication on the day of the procedure to accurately assess the injection's effect. - Arrange for someone to drive you to and from the procedure. Coding Level of Care Code New Pt Level 4 (29945) Diagnoses Left knee pain M25.562 Sacroiliac dysfunction M53.3
[2025-06-27 10:56] VITALS: BP 158/72; PULSE 78; RESP 16; O2SAT 99; BMI 26.6
--- OUTSIDE RECORDS SUMMARY | 2025-06-27 12:01 | XMS_ITS | Clinical Summary ---
Author Organization [facility] Address [address] [place] [address] Care Team Providers Care Clinical Safety Specialist Name Role Phone Young Jimenez MD Primary Care Provider [phone] Allergies Active Allergy Reactions Criticality Noted Date Comments Amoxicillin Diarrhea Low 04/04/2021 Buspirone Other (See Comments) Medium 04/04/2021 [place] more anxious Propoxyphene Anaphylaxis High 04/04/2021 Passed [...] age to complete this topic Care Teams Clinical Safety Specialist Relationship Specialty Start Date End Date Young Jimenez MD [address] [place] [address] PCP - General Manager Military 12/25/16
--- OUTSIDE RECORDS SUMMARY | 2025-06-27 12:01 | XMS_ITS | Clinical Summary ---
Author Organization [facility] Address [address] [place] [address] Phone Care Team Providers Care Farm Field Manager Name Role Phone Young Jimenez MD [...] Surgery [facility] Endoscopy Admitting Dept Virtual Department [address] [place] [address] Annamarie Coker MD ESOPHAGOGASTRODUODENOSCOPY 5 11:54 AM EDT Anesthesia Event [facility] Virtual Department [address] [place] [address] Fauzia Aranda MD 5 10:21 AM EDT - 5 12:41 PM EDT Hospital Encounter [facility] Virtual Department [address] [place] [address] Annamarie Coker MD Discharge Disposition: Home or Self Care 5 Transcribe Orders [facility] [address] [place] [address], [address] [place] [address] Annamarie Coker MD Melena (Primary Dx); Fundic gland polyps of stomach, benign 5 Procedure Pass [facility] Admitting Dept Virtual Department [address] [place] [address] 5 9:30 AM EDT Pre-Admission Testing Pre Procedure Evaluation [address] [place] [address] Annamarie Coker MD from Last 3 Months [...] this topic Medical Devices Implanted Type Area Body Welder Device Identifier Shelf Expiration Date Model / Serial / Lot Prosthetic Joint Prosthetic Joint Right: Knee Procedures Procedure Name Priority Date/Time Associated Diagnosis Comments [place] EDG TRANSORAL BIOPSY SINGLE/MULTIPLE 05/16/2025 11:53 AM EDT 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) Special Needs Arriving 2 hours early for CBC and type & screen - per office [place] ESOPHAGOGASTRODUODENOSCOP Y TRANSORAL DIAGNOSTIC 05/16/2025 11:53 AM [...] Coker MD - 05/16/2025 11:45 AM EDT [facility] Patient Name: Alina Mike Attending MD:: ANNAMARIE COKER MD, Procedure Date: 05/16/2025 11:45 AM Date of : 1945 Age: 80 Admit Type: Outpatient Gender: Female Room: [place] [address] Referring MD: Young Jimenez MD Exam Type: [...] 11:45 AM Procedure Code(s): --- Professional --- 25942, Esophagogastroduodenoscopy, flexible, transoral; diagnostic, including collection of specimen(s) by brushing or washing, when performed (separate procedure) --- Technical --- 45465, Esophagogastroduodenoscopy, flexible, transoral; diagnostic, including collection of [...] parts of digestive tract CPT copyright 2021 [employer]. All rights reserved. The codes documented in this report are preliminary and upon frame coverer reviewmay be revised to meet current compliance requirements. Procedure Date: 05/16/2025 11:45:[address] [place] [address] Young Jimenez MD GI PROCEDURE ORDERABLES Final Result * (ABNORMAL) CBC (05/16/2025 10:58 AM EDT) WBC 10.82 4.00 - 11.00 K/uL [facility] RBC 4.54 4.00 - 5.20 M/uL [facility] HGB 12.7 12.0 - 16.0 g/dL [facility] HCT 39.1 36.0 - 46.0 % [facility] PLT 340 150 - 450 K/uL [facility] MCV 86.1 80.0 - 100.0 fL [facility] MCH 28.0 27.0 - 31.0 pg [facility] MCHC 32.5 32.0 - 36.0 g/dL [facility] RDW 14.2 11.5 - 14.5 % [facility] MPV 8.1(L) 8.4 - 12.0 fL [facility] NRBC 0.00 0.00 /100 WBCs [facility] ABSOLUTE NRBC 0.00 0.00 K/uL [facility] Blood 05/16/2025 10:5 8 AM EDT 05/16/2025 11:16 AM EDT us Annamarie Coker MD LAB BLOOD ORDERABLES Final Res ult [address] [address] * Type and Screen (ABO,Rh,Antibody Screen) (05/16/2025 10:58 AM EDT) ABO/Rh A Positive [facility] Antibody Screen Negative [facility] Expiration Date of Sample 05/19/2025,2 359 [facility] Resulting Agency [facility] Blood 05/16/2025 10:5 8 AM EDT 05/16/2025 11:16 AM EDT us Annamarie Coker MD BLOOD BANK TEST ORDERABLES Fin al Result Performing Organization Address City/[facility]/ZIP Co de Phone Number [address] [address] * Outside Procedure (05/16/2025) us Scanning Interface Provider PROCEDURE/MINOR SURG ICAL PERFORMABLES Final Result * Outside Lab (05/16/2025) us Scanning Interface Provider LAB BLOOD ORDERABLES Final Result * Outside Pathology (05/16/2025) us Scanning Interface Provider PATHOLOGY ORDERABLES Final Result from Last 3 Months Insurance MEDICARE PART A & B [facility] MEDICARE PART A & B [facility] MEDICARE PART A & B [facility] MEDICARE PART A & B [facility] [address] MEDICARE PART A & B [facility] MEDICARE PART A & B [facility] MEDICARE PART A & B Member Subscriber Plan / Payer (Ef fective 2011-Present) Name:[employer] Alina Member ID:[id number] Relation to Subscriber:Self Name:Mike Alina Subscriber ID:[id number] Payer ID:[id number] Group ID:Not on file Type:Medicare Address: [employer] [address] [place] [id number] [place] [address] MEDICARE PART A & B [facility] FLAQUITO ALMEIDA MEDICARE PART A & B [facility] Care Teams Farm Field Manager Relationship Specialty Start Date End Date Young Jimenez MD [address] [place] [address] PCP - General Internal Medicine 02/15/19 Additional Source Comments The information contained in this document represents components of the legal health record. It is not the complete legal health record.[facility]
--- OUTSIDE RECORDS SUMMARY | 2025-06-27 12:01 | XMS_ITS | Encounter Summary ---
Author Organization [facility] Address [address] [place] [address] Care Team Providers Care Dye Feeder Name Role Phone Young Lema MD Primary Care Provider [phone] Encounter Details Date Type Department Care Team (Latest Contact Info) Description 12/22/2024 Lab Requisition [facility] - Main Lab [address] [facility] [place] [address] Young Lema MD [address] [place] [address] Acute upper respiratory infection, unspecified; Type 2 [...] Description 08/04/2025 2:00 PM EDT Office Visit [facility] Hematology Oncology [address] [place] [phone] Emile Webber MD [address] [place] [phone] 03/13/2026 11:00 AM EDT Ancillary Procedure [facility] Cardiology [facility] [address] [phone] 03/20/2026 12:00 PM EDT Ancillary Procedure [facility] [address] [phone] documented as of this encounter Procedures Procedure [...] K/mcL LAB HEMETOLOGY METHOD 12/22/2024 4:[address] [facility] RBC 3.60(L) 3.80 - 4.80 M/mcL LAB HEMETOLOGY METHOD 12/22/2024 4:[address] [facility] Hemoglobin 10.7(L) 11.5 - 16.0 g/dL LAB HEMETOLOGY METHOD 12/22/2024 4:[address] [facility] Hematocrit 34.0(L) 35.0 - 47.0 % LAB HEMETOLOGY METHOD 12/22/2024 4:[address] [facility] MCV 95.8 79.0 - 98.0 FL LAB HEMETOLOGY METHOD 12/22/2024 4:[address] [facility] MCH 30.1 27.0 - 32.0 pcg LAB HEMETOLOGY METHOD 12/22/2024 4:[address] [facility] MCHC 31.5(L) 32.0 - 37.0 g/dL LAB HEMETOLOGY METHOD 12/22/2024 4:[address] [facility] RDW 15.7(H) 11.0 - 15.0 % LAB HEMETOLOGY METHOD 12/22/2024 4:[address] [facility] Platelets 285 130 - 400 K/mcL LAB HEMETOLOGY METHOD 12/22/2024 4:[address] [facility] MPV 8.5 7.0 - 11.0 FL LAB HEMETOLOGY METHOD 12/22/2024 4:[address] [facility] NRBC 0.0 <1.0 % LAB HEMETOLOGY METHOD 12/22/2024 4:[address] [facility] NRBC Absolute 0.00 <0.10 K/mcL LAB HEMETOLOGY METHOD 12/22/2024 4:[address] [facility] Neutrophils Relative 72.4 % LAB HEMETOLOGY METHOD 12/22/2024 4:[address] [facility] Lymphocytes Relative 13.6 % LAB HEMETOLOGY METHOD 12/22/2024 4:[address] [facility] Monocytes Relative 7.4 % LAB HEMETOLOGY METHOD 12/22/2024 4:[address] [facility] Eosinophils Relative 5.1 % LAB HEMETOLOGY METHOD 12/22/2024 4:[address] [facility] Basophils Relative 1.1 % LAB HEMETOLOGY METHOD 12/22/2024 4:[address] [facility] Immature Granulocytes Relative 0.4 % LAB HEMETOLOGY METHOD 12/22/2024 4:[address] [facility] Neutrophils Absolute 4.12 1.50 - 7.00 K/mcL LAB HEMETOLOGY METHOD 12/22/2024 4:[address] [facility] Lymphocytes Absolute 0.77(L) 1.00 - 5.00 K/mcL LAB HEMETOLOGY METHOD 12/22/2024 4:[address] [facility] Monocytes Absolute 0.42 0.20 - 1.00 K/mcL LAB HEMETOLOGY METHOD 12/22/2024 4:[address] [facility] Eosinophils Absolute 0.29 0.00 - 0.50 K/mcL LAB HEMETOLOGY METHOD 12/22/2024 4:14 PM EST [facility] Basophils Absolute 0.06 0.00 - 0.20 K/mcL LAB HEMETOLOGY METHOD 12/22/2024 4:[address] [facility] Immature Granulocytes Absolute 0.02 0.00 - 0.03 K/mcL LAB HEMETOLOGY METHOD 12/22/2024 4:[address] [facility] Blood Venous blood specimen / Unknown 12/22/2024 1:22 PM EST 12/22/2024 3:56 PM EST us Young Lema MD LAB BLOOD ORDERABLES Final Res ult [facility] [address] [place] [address], * (ABNORMAL) Comprehensive metabolic panel (12/22/2024 1:22 PM EST) Sodium 137 133 - 145 mmol/L LAB CHEMISTRY METHOD 12/22/2024 4:[address] [facility] Potassium 3.7 3.5 - 5.5 mmol/L LAB CHEMISTRY METHOD 12/22/2024 4:[address] [facility] Chloride 103 96 - 110 mmol/L LAB CHEMISTRY METHOD 12/22/2024 4:[address] [facility] CO2 30 21 - 32 mmol/L LAB CHEMISTRY METHOD 12/22/2024 4:[address] [facility] Anion Gap 4 3 - 11 LAB CHEMISTRY METHOD 12/22/2024 4:[address] [facility] Glucose 109(H) 70 - 100 mg/dL LAB CHEMISTRY METHOD 12/22/2024 4:[address] [facility] BUN 25 5 - 25 mg/dL LAB CHEMISTRY METHOD 12/22/2024 4:[address] [facility] Creatinine 1.06 0.50 - 1.10 mg/dL LAB CHEMISTRY METHOD 12/22/2024 4:[address] [facility] eGFR 54(L) >=60 mL/min/1. 73m2 LAB CHEMISTRY METHOD 12/22/2024 4:[address] [facility] Comment:Calculation based on the Chronic Kidney Disease Epidemiology Collaboration (CKD-EPI) equation refit without adjustment for race. BUN/Creatinine Ratio 23.6 LAB CHEMISTRY METHOD 12/22/2024 4:[address] [facility] Calcium 8.9 8.5 - 10.5 mg/dL LAB CHEMISTRY METHOD 12/22/2024 4:[address] [facility] AST (SGOT) 42 10 - 42 unit/L LAB CHEMISTRY METHOD 12/22/2024 4:[address] [facility] ALT (SGPT) 53 10 - 60 unit/L LAB CHEMISTRY METHOD 12/22/2024 4:[address] [facility] Alkaline Phosphatase 97 42 - 121 unit/L LAB CHEMISTRY METHOD 12/22/2024 4:[address] [facility] Total Protein 6.7 6.0 - 8.0 g/dL LAB CHEMISTRY METHOD 12/22/2024 4:[address] [facility] Albumin 3.8 3.2 - 5.0 g/dL LAB CHEMISTRY METHOD 12/22/2024 4:[address] [facility] Total Bilirubin 0.4 0.0 - 1.4 mg/dL LAB CHEMISTRY METHOD 12/22/2024 4:[address] [facility] Blood Venous blood specimen / Unknown 12/22/2024 1:22 PM EST 12/22/2024 3:56 PM EST us Young Lema MD LAB BLOOD ORDERABLES Final Res ult [facility] [address] [place] [address], [place] [phone] * Thyroid stimulating hormone with reflex to free t4 and free t3 (12/22/2024 1:22 PM EST) Pathologist [facility] TSH 1.81 0.40 - 4.00 mcIU/mL LAB CHEMISTRY METHOD 12/22/2024 4:34 PM EST [facility] Blood Venous blood specimen / Unknown 12/22/2024 1:22 PM EST 12/22/2024 3:56 PM EST Young Lema MD LAB BLOOD ORDERABLES Final Res ult [facility] [address] [place] [address], [place] [phone] * (ABNORMAL) Lipid panel with reflex to direct LDL (12/22/2024 1:22 PM EST) [facility] Cholesterol 145 0 - 200 mg/dL LAB CHEMISTRY METHOD 12/22/2024 4:[address] [facility] Triglycerides 233(H) 0 - 150 mg/dL LAB CHEMISTRY METHOD 12/22/2024 4:[address] [facility] HDL 38(L) >=40 mg/dL LAB CHEMISTRY METHOD 12/22/2024 4:[address] [facility] LDL Calculated 60 0 - 100 mg/dL LAB CHEMISTRY METHOD 12/22/2024 4:[address] [facility] VLDL Cholesterol Ham 46.6 mg/dL LAB CHEMISTRY METHOD 12/22/2024 4:[address] [facility] Non HDL Chol. (LDL+VLDL) 107 <145 mg/dL LAB CHEMISTRY METHOD 12/22/2024 4:[address] [facility] Chol/HDL Ratio 3.8 0.0 - 4.4 LAB CHEMISTRY METHOD 12/22/2024 4:[address] [facility] Blood Venous blood specimen / Unknown 12/22/2024 1:22 PM EST 12/22/2024 3:56 PM EST Young Lema MD LAB BLOOD ORDERABLES Final Res ult Performing Organization Address [facility]/ZIP Co de Phone Number [facility] [address] [place] [address], [place] [phone] * Hemoglobin A1c (12/22/2024 1:22 PM EST) Hemoglobin A1C 5.6 <6.5 % LAB CHEMISTRY METHOD 12/22/2024 8:47 PM EST [facility] Mean Bld Glu Estim. 114 mg/dL LAB CHEMISTRY METHOD 12/22/2024 8:47 PM EST [facility] Blood Venous blood specimen / Unknown 12/22/2024 1:22 PM EST 12/22/2024 3:56 PM EST Young Lema MD LAB BLOOD ORDERABLES Final Res ult Performing Organization Address [facility] Co de Phone Number [facility] [address] [place] [address], [place] [phone] documented in this encounter Visit Diagnoses Diagnosis Acute upper respiratory infection, unspecified Type 2 diabetes mellitus without complications (CMS/HCC V24, CMS/HCC V28) Essential (primary) hypertension Unspecified essential hypertension Fibromyalgia Unspecified myalgia and myositis Iron deficiency anemia secondary to blood loss (chronic) Gastro-esophageal reflux disease without esophagitis documented in this encounter Care Teams Dye Feeder Relationship Specialty Start Date End Date Young Lema MD [address] [place] [address] PCP - General Internal Medicine 11/01/24 documented as of this encounter
== END 2025-06-27 11:38 | disposition home or self-care (01) ==
LOC: HO.PMC 10:54
PROVIDERS: PCP Internal Medicine; Visit Provider Internal Medicine
DX: M25.562 Pain in left knee (principal); M53.3 Sacrococcygeal disorders, not elsewhere classified
CPT/HCPCS: 99204

== ENCOUNTER → 2025-06-27 10:53 | Outpatient (BNVA) | payer MEDICARE, BC, SELFPAY | PROVIDERS: PCP Internal Medicine; Visit Provider Internal Medicine | DX: M25.562 Pain in left knee (principal); M53.3 Sacrococcygeal disorders, not elsewhere classified | CPT/HCPCS: 99202 ==